=== PATIENT | female | born 1980 | race Caucasian/White ===

== ENCOUNTER → 2016-09-13 | Outpatient (CLI) | payer OTHER ==
[~2016-09-13] MED LIST: ASPECUNK PO; INSPMPHMLG; PRCUNK PO
[2016-09-13 16:35] LABS: ALT/SGPT 23 U/L (12-78); AST/SGOT 14 U/L (15-37); BLOOD UREA NITROGEN 8 mg/dl (7-18); BUN/CREATININE RATIO 10.1 (10-20); CARBON DIOXIDE 28 mmol/L (21-32); CHLORIDE 107 mmol/L (98-107); CREATININE 0.78 mg/dl (0.60-1.20); GLUCOSE 55 mg/dl (70-99); MAGNESIUM 2.2 mg/dl (1.8-2.4); POTASSIUM 3.5 mmol/L (3.5-5.1); SODIUM 141 mmol/L (136-145)
[2016-09-13 16:39] LABS: ALB/GLOB RATIO 0.9 (0.9-2); ALKALINE PHOSPHATASE 89 U/L (45-117); CHOLESTEROL 194 mg/dl (0-200); CHOLESTEROL/HDL RATIO 2.6; HDL CHOLESTEROL 75 mg/dl; LDL CHOLESTEROL CALCULATED 89 mg/dl; TRIGLYCERIDES 152 mg/dl (0-150); VERY LOW DENSITY LIPOPROT CALC 30 mg/dl
[2016-09-14 07:23] LABS: ESTIMATED AVERAGE GLUCOSE 209 mg/dl; HA1C FLAG Normal (Normal)
== END | disposition home or self-care (01) ==
LOC: C.LAB1850 15:21
PROVIDERS: ATTEND Internal Medicine
DX: E10.65 Type 1 diabetes mellitus with hyperglycemia (principal); E55.9 Vitamin D deficiency, unspecified; E83.42 Hypomagnesemia; R53.83 Other fatigue; Z71.89 Other specified counseling

== ENCOUNTER → 2017-02-26 | Outpatient (CLI) | payer OTHER ==
[2017-02-26 17:15] LABS: BLOOD UREA NITROGEN 12 mg/dl (7-18); BUN/CREATININE RATIO 12.2 (10-20); CALCIUM 9.1 mg/dl (8.5-10.1); CARBON DIOXIDE 30 mmol/L (21-32); CHLORIDE 101 mmol/L (98-107); CREATININE 0.96 mg/dl (0.60-1.20); GLUCOSE 332 mg/dl (70-99); POTASSIUM 3.9 mmol/L (3.5-5.1); SODIUM 136 mmol/L (136-145)
[2017-02-26 17:19] LABS: ESTIMATED AVERAGE GLUCOSE 255 mg/dl; HA1C FLAG Normal (Normal)
[2017-02-26 17:25] LABS: BETA-HYDROXYBUTYRATE 1.02 mg/dL (0.2-2.81); THYROID STIMULATING HORMONE 0.836 uIu/ml (0.300-4.500)
== END | disposition home or self-care (01) ==
LOC: C.LAB1850 15:20
PROVIDERS: ATTEND Nurse Practitioner Adult Health
DX: E10.65 Type 1 diabetes mellitus with hyperglycemia (principal); E55.9 Vitamin D deficiency, unspecified

== ENCOUNTER → 2017-12-10 | Outpatient (CLI) | payer OTHER ==
[~2017-12-10] MED LIST changes: +LINA1CAP2 PO; +ONDA4TAB46 PO
--- NOTE | 2017-12-10 13:26 | DIAGNOSTIC IMAGING REPORT ---
ABDOMEN 2VIEW W/PA CHEST RTN HISTORY: 37 years-old Female K59.09 chronic constipation COMPARISON: CT abdomen and pelvis 05/13/2012 TECHNIQUE: PA view of the chest with erect and supine views of the abdomen FINDINGS: Cardiomediastinal and hilar silhouettes are within normal limits. No pneumothorax, pleural effusion, focal airspace consolidation or overt pulmonary edema. Bones of the chest appear grossly intact. No pneumatosis or pneumoperitoneum. Bowel gas pattern is nonobstructive. Renal shadows are partially obscured by bowel gas. The previously noted nonobstructing calculus of the left kidney is not definitively seen. Indeterminate 1.9 cm round radiodensity about the left midabdomen may be external to the patient. There is moderate volume of formed stool noted throughout the right hemicolon and transverse colon with a few scattered air-fluid levels. No fracture. Phleboliths of the pelvis. IMPRESSION: 1. No acute processes of the chest. 2. Nonobstructive bowel gas pattern. 3. Moderate formed colonic stool about the cecum, ascending and transverse colon. The above report was generated using voice recognition software. It may contain grammatical, syntax or spelling errors. Electronically signed by: Andre Vigil M.D. 12/10/2017 1:25 PM Dictated Date/Time: 12/10/2017 1:23 PM
[2017-12-10 14:52] LABS: BASO % 0.5 %; BASO ABS # 0.02 K/uL (0-0.2); EOS % 1.2 %; EOS ABS # 0.05 K/uL (0-0.5); HEMATOCRIT 42.1 % (37-47); HEMOGLOBIN 13.9 g/dL (12.0-16.0); IG# 0.01 K/uL (0.00-0.02); LYMPH % 35.4 %; LYMPH ABS # 1.45 K/uL (1.2-3.4); MEAN CELL VOLUME 89.2 fL (80-100); MEAN CORPUSCULAR HEMOGLOBIN 29.4 pg (25-34); MEAN PLATELET VOLUME 11.2 fL (7.4-10.4); MONO ABS # 0.45 K/uL (0.11-0.59); NEUT % 51.7 %; NEUT ABS # 2.12 K/uL (1.4-6.5); PLATELET COUNT 298 K/uL (130-400); RED CELL DISTRIBUTION WIDTH CV 13.6 % (11.5-14.5); RED CELL DISTRIBUTION WIDTH SD 44.6 fL (36.4-46.3)
[2017-12-10 15:52] LABS: ALBUMIN 3.6 gm/dl (3.4-5.0); ALKALINE PHOSPHATASE 80 U/L (45-117); ALT/SGPT 21 U/L (12-78); AST/SGOT 13 U/L (15-37); BLOOD UREA NITROGEN 7 mg/dl (7-18); CALCIUM 8.6 mg/dl (8.5-10.1); CARBON DIOXIDE 26 mmol/L (21-32); CHOLESTEROL 131 mg/dl (0-200); CREATININE 0.82 mg/dl (0.60-1.20); GLUCOSE 165 mg/dl (70-99); LDL CHOLESTEROL CALCULATED 68 mg/dl; LIPASE 56 U/L (73-393); POTASSIUM 3.3 mmol/L (3.5-5.1); SODIUM 137 mmol/L (136-145); TOTAL PROTEIN 7.8 gm/dl (6.4-8.2)
== END | disposition home or self-care (01) ==
LOC: C.RAD1850 12:19
PROVIDERS: ATTEND Physician Assistant
DX: K59.09 Other constipation (principal); E10.65 Type 1 diabetes mellitus with hyperglycemia; E55.9 Vitamin D deficiency, unspecified; E78.5 Hyperlipidemia, unspecified; Z46.81 Encounter for fitting and adjustment of insulin pump

== ENCOUNTER → 2017-12-19 | Day surgery (SDC) | payer OTHER ==
[2017-12-14 09:54] VITALS: Ht 174 cm; Wt 100.0 kg
[~2017-12-19] VITALS: Ht 174 cm; Wt 100.0 kg
[~2017-12-19] MED LIST changes: -ASPECUNK PO; -PRCUNK PO; +PROPOFOL IV EMULSION 10 MG/ML 20 ML VIAL ONE; +SODIUM CHLORIDE 0.9% 500ML 500 ML IV ONE
--- NOTE | 2017-12-19 11:24 | Endo History and Physical ---
History & Physical Date of Service: Dec 19, 2017. Chief Complaint: Abdominal pain and Elevated C-Reactive Protein Referring Physician: Dr. Henley History of Present Illness 37 yo CF who presents for colonoscopy secondary to abdominal pain and elevated C -Reactive protein. Past Surgical History Hx Cardiac Surgery: No Hx Internal Defibrillator: No Hx Pacemaker: No Hx Abdominal Surgery: No Hx of Implantable Prosthesis: No Hx Post-Op Nausea and Vomiting: No Hx Cancer Surgery: No Hx Thoracic Surgery: No Hx Orthopedic: Yes (R ANKLE SX X3--HAS LARA PLACED) Hx Urinary Tract Surgery: No Family History None Social History Smoking Status: Never Smoker Hx Substance Use: No Hx Alcohol Use: Yes (RARELY) Allergies Coded Allergies: No Known Allergies (Verified , NONE, 12/14/17) Current Medications Reported Home Medications Medications Dose Route/Sig Max Daily Dose Days Date Category Zofran (Ondansetron HCl) 4 Mg Tab 4 Mg PO Q6 PRN 12/14/17 Reported Linzess (Linaclotide) 290 Mcg Cap 1 Cap PO DAILYBB 12/14/17 Reported Insulin Humalog Pump (Insulin Human Lispro) Pump 10/07/08 Reported Vital Signs Weight (Kilograms): 100 Height (Feet): 5 Height (Inches): 8.5 Physical Exam General Appearance: WD/WN, no apparent distress Respiratory/Chest: Auscultation: breath sounds normal Cardiovascular: Heart Auscultation: RRR Abdomen: Bowel Sounds: normal Inspection & Palpation: soft, non-distended, no tenderness, guarding & rebound Assessment and Plan Assessment: 37 yo CF who presents for colonoscopy secondary to abdominal pain and elevated C -Reactive protein. Plan: Proceed with colonoscopy.
[2017-12-19 11:31] VITALS: TEMP 36.9
--- NOTE | 2017-12-19 12:09 | GI REPORT ---
Patient Name: Roberta Avila Procedure Date: 12/19/2017 11:18 AM Date of : 1980 Admit Type: Outpatient Age: 37 Gender: Female Attending MD: Rj Varner DO Procedure: Colonoscopy Providers: Rj Varner DO Referring MD: Agatha Hartman Indications: Generalized abdominal pain, Elevated CRP Medicines: Monitored Anesthesia Care Complications: No immediate complications. Estimated Blood Loss: Estimated blood loss: none. Procedure: Pre-Anesthesia Assessment: - Prior to the procedure, a History and Physical was performed, and patient medications and allergies were reviewed. The patient's tolerance of previous anesthesia was also reviewed. The risks and benefits of the procedure and the sedation options and risks were discussed with the patient. All questions were answered, and informed consent was obtained. Prior Anticoagulants: The patient has taken no previous anticoagulant or antiplatelet agents. ASA Grade Assessment: II - A patient with mild systemic disease. After reviewing the risks and benefits, the patient was deemed in satisfactory condition to undergo the procedure. After I obtained informed consent, the scope was passed under direct vision. Throughout the procedure, the patient's blood pressure, pulse, and oxygen saturations were monitored continuously. The On-site loaner was introduced through the anus and advanced to the terminal ileum. The colonoscopy was performed without difficulty. The patient tolerated the procedure well. The quality of the bowel preparation was good. The terminal ileum, ileocecal valve, appendiceal orifice, and rectum were photographed. Findings: The perianal and digital rectal examinations were normal. Non-bleeding internal hemorrhoids were found during retroflexion. The hemorrhoids were small. Impression: - Non-bleeding internal hemorrhoids. - No specimens collected. Recommendation: - Resume previous diet. - Continue present medications. - Repeat colonoscopy in 10 years for surveillance. - Return to primary care physician as previously scheduled. Rj Varner DO 12/19/2017 12:08:32 PM This report has been signed electronically. Note Initiated On: 12/19/2017 11:18 AM Number of Addenda: 0 I attest to the content of the Intraoperative Record and orders documented therein, exceptions below {[id number]}
[2017-12-19 12:32] VITALS: BP 125/88; PULSE 93; O2SAT 99
--- NOTE | 2017-12-19 12:46 | Anesthesiology Progress Note ---
Anesthesia Post Op Note Date & Time Dec 19, 2017 at 12:46 Vital Signs Pain Intensity: 0 Vital Signs Past 12 Hours Date Time Temp Pulse Resp B/P (MAP) Pulse Ox O2 Delivery O2 Flow Rate FiO2 12/19/17 12:32 93 18 125/88 (100) 99 Room Air 12/19/17 12:24 95 18 121/80 (94) 99 Room Air 12/19/17 12:17 98 16 106/84 (91) 98 Room Air 12/19/17 12:11 93 16 110/66 (81) 87 Room Air 12/19/17 11:31 36.9 102 16 144/83 (103) 98 Room Air Notes Mental Status: alert / awake / arousable, participated in evaluation Pt Amnestic to Procedure: Yes Nausea / Vomiting: adequately controlled Pain: adequately controlled Airway Patency, RR, SpO2: stable & adequate BP & HR: stable & adequate Hydration State: stable & adequate Anesthetic Complications: no major complications apparent
--- NOTE | 2017-12-19 12:50 | Discharge Instructions ---
Endoscopy Patient Instructions Date / Procedure(s) Performed Dec 19, 2017. Colonoscopy Allergy Information Coded Allergies: No Known Allergies (Verified , NONE, 12/14/17) Discharge Date / Findings Dec 19, 2017. Internal hemorrhoids Medication Instructions OK to resume all medications today as prescribed Reported Home Medications Medications Dose Route/Sig Max Daily Dose Days Date Category Zofran (Ondansetron HCl) 4 Mg Tab 4 Mg PO Q6 PRN 12/14/17 Reported Linzess (Linaclotide) 290 Mcg Cap 1 Cap PO DAILYBB 12/14/17 Reported Insulin Humalog Pump (Insulin Human Lispro) Pump 10/07/08 Reported Provider Instructions Activity Restrictions - No exercising or heavy lifting for 24 hours. - Do not drink alcohol the day of the procedure. - Do not drive a car or operate machinery until the day after the procedure. - Do not make any important decisions or sign important papers in 24 hours after the procedure. Following Day: - Return to full activity which may include returning to work/school. Diet Start your diet with liquids and light foods (jello, soup, juice, toast). Then eat your usual diet if not nauseated. Treatment For Common After Affects For mild abdominal pain, bloating, or excessive gas: - Rest - Eat lightly - Lie on right side Follow-Up Information Follow-up with Dr. Irvin Henley, Dr. Chelsea Cloudor as scheduled Anesthesia Information What You Should Know You have had a procedure that required some medicine to reduce anxiety and discomfort. This treatment is called moderate sedation. After receiving the treatment, you may be sleepy, but you will be able to breathe on your own. The effects of the treatment may last for several hours. Follow these instructions along with Activity/Diet recommendations noted above: * Do NOT do anything where dizziness or clumsiness would be dangerous. * Rest quietly at home today, then you can be up and about tomorrow. * Have a responsible person stay with you the rest of today. * You may have had an I.V. today. If so, you may take the dressing off later today. Recommendations Call your doctor if: * Trouble breathing * Continuous vomiting for more than 24 hours * Temperature above 101 degrees * Severe abdominal pain or bloating * Pain not relieved by pain medicine ordered * There is increased drainage or redness from any incision * A large amount of rectal bleeding greater than 2-3 tablespoons. (If you had a polyp/s removed or have hemorrhoids, a small amount of blood - from the rectum is to be expected.) * You have any unanswered questions or concerns. IN THE EVENT OF A SERIOUS EMERGENCY, GO TO THE NEAREST EMERGENCY ROOM Your discharge instructions were prepared by provider Rj Varner. Patient Instructions Signature Page Roberta Avila Patient (or Guardian) Signature/Date: I have read and understand the instructions given to me by my caregivers. Caregiver/RN/Doctor Signature/Date: The above-named patient and/or guardian has received patient instructions on this date. + Original Patient Signature Page (only) stays with chart. Please make copy for patient.
== END | disposition home or self-care (01) ==
LOC: C.GI 11:04
PROVIDERS: ATTEND Internal Medicine
DX: R10.84 Generalized abdominal pain (principal); R79.82 Elevated C-reactive protein (CRP); K64.8 Other hemorrhoids; E11.9 Type 2 diabetes mellitus without complications; Z79.4 Long term (current) use of insulin

== ENCOUNTER 2023-07-11 09:23 | Inpatient (IN) ==
--- NOTE | 2023-07-11 10:11 | Emergency Department Note ---
Impression & Plan Back pain ADMIT ED Provider Note HPI: History obtained from patient. The patient is a 43-year-old female who presents emergency department with a chief complaint of left lower back pain that radiates down her left leg. Patient states that her symptoms are worsened over the past 3 days. Patient denies any loss of bowel or bladder, denies any recent fevers, denies any saddle anesthesia. Patient states she does get pain with flexion at the left hip. On arrival here to the ED the patient is hemodynamically stable, she is in no acute distress on my initial assessment. ROS: - Per HPI Differential Diagnosis: Herniated lumbar disc, paracentral lumbar disc extrusion, degenerative changes of the lumbar spine with neuroforaminal stenosis, epidural abscess, epidural hematoma, amongst other potential pathologies. *Outpatient medications and allergy history reviewed. PE: General: Alert HEENT: Normocephalic, trachea midline Eyes: Extraocular eye movement is intact, no scleral erythema Pulmonary: Clear to auscultation bilaterally, no wheezing Cardio: Regular rate and rhythm GI: Abdomen is soft to palpation : No suprapubic tenderness MSK: No evidence of trauma or malformation of the extremities, no edema Skin: No evidence of rash Neuro: Alert, no focal deficits, there is 5 out of 5 strength noted with dorsiflexion and plantarflexion in the bilateral lower extremities Psychiatric: Cooperative INDEPENDENT INTERPRETATIONS: court monitor: (As interpreted by myself): - An order was placed for continuous cardiac monitoring - Patient was noted to be in sinus rhythm with a rate of 85 Interventions provided in ED: -IV morphine, IV Zofran, IV Solu-Medrol, IV Toradol Medical Decision Making: IV was established and lab work obtained, patient was placed on pvc monitor. Lab work shows no leukocytosis, hemoglobin is normal, platelet count is normal, CMP does not show any critical findings. Urinalysis does not show any evidence of infection, there is 3+ blood. CT imaging of the lumbar spine was obtained, this shows a large paracentral disc extrusion at the level of L5/S1. This does result in severe central canal stenosis. There is also a left-sided paracentral disc extrusion at L4-L5 that is likely playing a role in the patient's symptoms. On my reassessment the patient states following the above interventions that she is still having some pain with ambulation, she was therefore given an additional dose of morphine and a dose of IV Toradol. In discussing disposition options with the patient she states she would prefer admission for orthopedic/spinal surgery consultation given the severity of her pain and pain with ambulation. Patient does not have any red flag findings for cauda equina syndrome on my exam. I discussed the patient's imaging findings and symptoms with on-call orthopedic/spinal surgery, Dr. Patel, he is in agreement for consultation. He did recommend MRI imaging of the lumbar spine be obtained and therefore this was ordered prior to the patient's admission. Case was then discussed with the on- call hospitalist service, Sean Wang PA-C, and the patient was placed for admission in stable condition for further care and orthopedic consultation. Consultants/Discussions held with other healthcare providers: -Orthopedic/spinal surgery, Dr. Patel -Hospitalist service, Sean Wang PA-C Disposition discussion held by myself with: -Patient Diagnosis: 1. Spinal stenosis secondary to lumbar disc extrusion at L5/S1, acute 2. Lower back pain, acute on chronic, with left-sided radiculopathy 3. Ambulatory dysfunction, acute Disposition: Admission David Cortez DO Emergency Medicine Past Med/Surg History Medical History Acute bacterial sinusitis Chest pain Cough productive of purulent sputum Flank pain Urinary symptom or sign Surgical History History of wisdom tooth extraction S/P foot surgery Family History Grandmother (Maternal) Colorectal cancer Father Parkinson disease Renal failure Grandfather (Maternal) Eosinophilic leukemia Family/Other Ovarian cancer Denies family history of Prostate cancer Crohn's disease Myocardial infarction Breast cancer Ulcerative colitis Social History Smoking Status: Never smoker Hx Alcohol Use: Yes Hx Substance Use: No Preferred Language: Greek Communication Ability: Effective Visual Impairment: No Limitations Hearing Ability: Normal marital status: Single Current Living Situation: Alone current occupational status: employed Feels Safe at Home: Yes Dental Care, Regularly: Yes Physical Activity Frequency: 1-2 Times per Week Seatbelt Use: always Sunscreen Use: Yes Allergies Allergies Allergy/AdvReac Type Severity Reaction Status Date / Time No Known Drug Allergies Allergy Verified 07/11/23 11:36 Home Meds Home Medications Medication Instructions Recorded Confirmed ferrous sulfate 325 mg (65 mg 325 mg PO Q OTHER DAY 02/11/20 07/11/23 iron) tablet mecobalamin (vitamin B12) 1,000 2,000 mcg PO DAILY 01/19/22 07/11/23 mcg chewable tablet lancets 33 gauge (OneTouch Delica #100 ea 08/17/22 10/27/22 Lancets) acetaminophen 500 mg tablet 500 mg PO Q6H PRN Pain 07/11/23 07/11/23 ibuprofen 200 mg tablet (Advil) 200 mg PO Q6H PRN Pain 07/11/23 07/11/23 insulin aspart U-100 100 unit/mL See Rx Instructions .Route .COMPLEX 07/11/23 07/11/23 subcutaneous solution (Novolog U-100 Insulin aspart) insulin lispro 100 unit/mL 40 unit subcut BID 07/11/23 07/11/23 subcutaneous solution Previous Rx's Medication Instructions Recorded flash glucose scanning reader #1 ea 01/06/22 (FreeStyle Barbara 2 [place]) blood sugar diagnostic (Circle 1 NetworkTouch #200 ea 04/03/22 Ultra Test strips) insulin pump cart,cont inf,BT #15 ea 07/18/22 (Omnipod Dash Pods (Gen 4) subcutaneous cartridge) atorvastatin 10 mg tablet 10 mg PO QPM #90 tabs 08/30/22 pen needle, diabetic 32 gauge x #400 ea 10/04/22 5/32" (BD Liliane 2nd Gen Pen Needle) insulin syringe-needle U-100 0.5 #200 ea 01/25/23 mL 31 gauge x 5/16" (BD Insulin Syringe Ultra-Fine) cholecalciferol (vitamin D3) 1,250 See Rx Instructions PO WEEKLY #13 03/09/23 mcg (50,000 unit) capsule caps flash glucose sensor (Tembo StudioStyle #6 ea 05/08/23 Barbara 2 Sensor kit) Results & Data (ED) Vital Signs Vital Signs - 24 hr 07/11/23 09:45 Temperature 36.7 C Temperature Source Temporal Artery Scan Pulse Rate 89 Respiratory Rate 18 Respiratory Effort / Characteristics Non-Labored Spontaneous Respiratory Depth Normal Blood Pressure 153/83 H Blood Pressure Mean 106 Blood Pressure Position Sitting Pulse Oximetry 98 Oxygen Delivery Method Room Air Sepsis Recent Fever Within 48 Hours No Sepsis New/Unexplained Change in Mental Status No Sepsis Action Taken by Nursing No Action Required Laboratory Data 07/11/23 10:20 07/11/23 10:20 Lab Results 07/11/23 07/11/23 Range/Units 10:20 10:23 WBC 7.16 (4.8-10.8) K/ul RBC 4.93 (4.20-5.40) M/uL Hgb 14.4 (12.0-16.0) g/dl Hct 44.1 (37.0-47.0) % MCV 89.5 (80.0-100.0) fL MCH 29.2 (25.0-34.0) pg MCHC 32.7 (32.0-36.0) g/dL RDW Std Deviation 47.2 H (36.4-46.3) fL RDW Coeff of Ar 14.4 (11.5-14.5) % Plt Count 373 (130-400) K/uL MPV 9.9 (9.4-12.4) fL Immature Gran % (Auto) 0.3 % Neut % (Auto) 66.8 % Lymph % (Auto) 26.1 % [place] % (Auto) 5.2 % Eos % (Auto) 1.0 % Baso % (Auto) 0.6 % Neut # (Auto) 4.79 (1.40-6.50) K/uL Lymph # (Auto) 1.87 (1.20-3.40) K/uL [place] # (Auto) 0.37 (0.11-0.59) K/uL Eos # (Auto) 0.07 (0.00-0.50) K/uL Baso # (Auto) 0.04 (0.00-0.20) K/uL Immature Gran # (Auto) 0.02 (0.01-0.20) K/uL Sodium 137 (136-145) mmol/L Potassium 3.8 (3.5-5.1) mmol/L Chloride 103 (98-107) mmol/L Carbon Dioxide 26 (21-32) mmol/L Anion Gap 8 (3-11) BUN 9 (6-23) mg/dl Creatinine 0.81 (0.6-1.2) mg/dl Est Cr Clr Drug Dosing Not Reportable Est GFR ( Amer) 104.6 ml/min Est GFR (Non-Af Amer) 90.2 ml/min BUN/Creatinine Ratio 11.1 (10-20) Glucose 170 H (70-99(Fasting)) mg/dl Calcium 9.4 (8.6-10.3) mg/dl Total Bilirubin 0.6 (0.2-1.0) mg/dl AST 19 (13-39) U/L ALT 16 (7-52) U/L Alkaline Phosphatase 75 (34-104) U/L Total Protein 8.3 (6.0-8.3) gm/dl Albumin 4.5 (3.4-5.0) gm/dl Globulin 3.8 (2.5-4.0) gm/dl Albumin/Globulin Ratio 1.2 (0.9-2) Lipase 36 (11-82) U/L Urine Color Yellow Urine Appearance Clear (Clear) Urine pH 6.0 (4.5-7.5) Ur Specific Alpha 1.011 (1.000-1.030) Urine Protein Negative (Negative) Urine Glucose (UA) Negative (Negative) Urine Ketones Negative (Negative) Urine Blood 3+ H (Negative) Urine Nitrite Negative (Negative) Urine Bilirubin Negative (Negative) Urine Urobilinogen Negative (Negative) Ur Leukocyte Esterase Negative (Negative) Urine WBC (Auto) 1-5 (0-5) /hpf Urine RBC (Auto) 0-4 (0-4) /hpf U Hyaline Cast (Auto) 0 (0-5) /lpf U Epithel Cells (Auto) 5-10 H (0-5) /lpf Urine Bacteria (Auto) Negative (Negative) Administered Medications Discontinued Medications Acetaminophen (Acetaminophen 325 Mg Tab) 650 mg PO Q6H WINSTON Stop: 08/10/23 13:59 Last Admin: 07/11/23 13:55 Dose: Not Given Documented By: SETH Sodium Chloride (Nss) 500 mls @ 999 mls/hr IV .Q31M STA Stop: 07/11/23 10:37 Last Infusion: 07/11/23 10:46 Dose: Infused Documented By: Admin: 07/11/23 10:17 Dose: 999 mls/hr Documented By: VIDA Pantoprazole Sodium 40 mg/ (Syringe) 10 mls @ 5 mls/min IV NOW ONE Stop: 07/11/23 13:03 Last Admin: 07/11/23 13:50 Dose: 5 mls/min Documented By: SETH Ketorolac Tromethamine (Ketorolac Tromethamine 15 Mg/Ml Vial) 15 mg IV NOW ONE Stop: 07/11/23 11:48 Last Admin: 07/11/23 11:56 Dose: 15 mg Documented By: Lidocaine (Lidocaine 5% 1 Patch) 1 patch TD NOW STA Stop: 07/11/23 13:05 Last Admin: 07/11/23 13:51 Dose: 1 patch Documented By: SETH Methylprednisolone (Methylprednisolone 125 Mg/2 Ml Vial) 125 mg IV NOW STA Stop: 07/11/23 10:08 Last Admin: 07/11/23 10:17 Dose: 125 mg Documented By: VIDA Miscellaneous (Patient's Height &/Or Weight Needed) 1 each N/A Q2H [place] Stop: 08/10/23 13:59 Last Admin: 07/11/23 14:11 Dose: 1 each Documented By: SETH Morphine Sulfate (Morphine Sulfate 4 Mg/Ml 1 Ml Carp\\Vial) 4 mg IV NOW STA Stop: 07/11/23 10:08 Last Admin: 07/11/23 10:18 Dose: 4 mg Documented By: VIDA Morphine Sulfate (Morphine Sulfate 4 Mg/Ml 1 Ml Carp\\Vial) 4 mg IV NOW STA Stop: 07/11/23 11:48 Last Admin: 07/11/23 11:56 Dose: 4 mg Documented By: Morphine Sulfate (Morphine Sulfate 4 Mg/Ml 1 Ml Carp\\Vial) 4 mg IV NOW STA Stop: 07/11/23 13:15 Last Admin: 07/11/23 13:25 Dose: 4 mg Documented By: SETH Ondansetron HCl (Ondansetron Inj 2 Mg/Ml 2 Ml Vial) 4 mg IV NOW STA Stop: 07/11/23 10:08 Last Admin: 07/11/23 10:18 Dose: 4 mg Documented By: VIDA Imaging Data Radiologist's Impression: Lumbar Spine CT 07/11/23 10:[address] DOSE: 1145.96 mGy.cm HISTORY: L lower back pain w/sciatica TECHNIQUE: Multiaxial CT images of the lumbar spine were performed and reformatted in the sagittal and coronal plane without the use of contrast. A dose lowering technique was utilized adhering to the principles of ALARA. COMPARISON: None. FINDINGS: No fracture or subluxation within the lumbar spine. The visualized sacrum is intact. Moderate disc space narrowing at L5-S1. The remaining disc spaces are preserved. Paravertebral soft tissues are unremarkable. There is a punctate stone within the left kidney. No right renal calculi. No hydronephrosis. There is a left circumaortic renal vein. There is a 5 mm central/left paracentral focal disc protrusion at L4-L5 resulting in movd-qu-euularmv central canal narrowing and moderate narrowing of the left lateral recess. No significant neural foraminal narrowing at this level by CT technique. There is a large partially calcified left paracentral disc extrusion at L5-S1. This measures 12 x 12 mm and results in severe predominantly left- sided central canal narrowing with severe narrowing of the left lateral recess. This likely compresses the transiting left S1 nerve root. IMPRESSION: 1. No acute fractures within the lumbar spine. 2. There is a large partially calcified left paracentral disc extrusion at L5-S1 measuring 12 x 12 mm. This results in severe central canal narrowing 3. A 5 mm central/left paracentral focal disc protrusion at L4-5 resulting in mild to moderate central canal narrowing and moderate narrowing of the left lateral recess preop ACT 112: Negative or not required by law. Electronically signed by: Andre Lunsford M.D. 07/11/2023 11:09 AM Lumbar Spine MRI 07/11/23 12:09 MR lumbar spine wo con CLINICAL HISTORY: LL back pain, ambulatory issues TECHNIQUE: Multiplanar sequences through the lumbar spine were obtained, without intravenous contrast. Comparison: Comparison is made to CT lumbar spine 07/11/2023 FINDINGS: The alignment is anatomical. L1-L2: No significant abnormality. L2-L3: No significant abnormality. L3-L4: No significant abnormality. L4-L5: Broad-based posterior disc bulge is seen without significant canal or neuroforaminal stenosis. L5-S1: Posterior disc extrusion is seen with severe canal and left neuroforaminal stenosis. The spinal ligaments are intact, without evidence of disruption or abnormal signal intensity. The spinal cord is normal in signal intensity and there is no evidence of cord contusion. There is no evidence of an extradural, intradural, extramedullary or intramedullary lesion. Visualized soft tissues are normal. IMPRESSION: Posterior disc extrusion at L5-S1 with severe canal and left neuroforaminal stenosis. ACT 112: Negative or not required by law. Electronically signed by: Jesse Marinelli M.D. 07/11/2023 2:00 PM Discharge Plan Visit Data Chief Complaint: Back Injury/Pain Stated Complaint: LOWER BACK PAIN ED Provider: David Cortez Discharge Problem: Back pain Patient Disposition: Admitted As Inpatient Discharge Instructions Interventions: ED Discharge Assessment Last Done: 07/11/23 14:35 Discharge Problem: Back pain Qualifiers: Back pain location: low back pain Chronicity: acute Back pain laterality: left Sciatica presence: with sciatica Sciatica laterality: sciatica of left side Q ualified Code(s): M54.42 - Lumbago with sciatica, left side
[2023-07-11] MEDS: SODIUM CHLORIDE 0.9% 500 ML IV STA (10:17)
[2023-07-11] MEDS: methylPREDNISolone 125 MG/2 ML VIAL IV STA (10:17)
[2023-07-11] MEDS: ONDANSETRON INJ 2 MG/ML 2 ML VIAL IV STA (10:18)
[2023-07-11] MEDS: MoRPHine SULFATE 4 MG/ML 1 ML CARP\\VIAL IV STA ×3 (10:18→13:25)
[2023-07-11 10:37] LABS: Appearance Urine Clear (Clear); Bacteria Urine Automated Negative (Negative); Bilirubin Urine Negative (Negative); Blood Urine 3+ (Negative); Cast Urine Automated 0 /lpf (0-5); Color Urine Yellow; Glucose Urine UA Negative (Negative); Ketones Urine Negative (Negative); Leukocyte Esterase Urine Negative (Negative); Nitrite Urine Negative (Negative); Protein Urine Negative (Negative); Specific Gravity Urine 1.011 (1.000-1.030); Urobilinogen Urine Negative (Negative)
[2023-07-11 10:39] LABS: Basophils # (auto) 0.04 K/uL (0.00-0.20); Basophils % (auto) 0.6 %; Eosinophils # (auto) 0.07 K/uL (0.00-0.50); Hematocrit (blood only) 44.1 % (37.0-47.0); Hemoglobin 14.4 g/dl (12.0-16.0); Immature Granulocytes # (auto) 0.02 K/uL (0.01-0.20); Immature Granulocytes % (auto) 0.3 %; Lymphocytes # (auto) 1.87 K/uL (1.20-3.40); Lymphocytes % (auto) 26.1 %; Mean Corpuscular Hemoglobin 29.2 pg (25.0-34.0); Mean Corpuscular Hgb Conc 32.7 g/dL (32.0-36.0); Mean Corpuscular Volume 89.5 fL (80.0-100.0); Mean Platelet Volume 9.9 fL (9.4-12.4); Monocytes # (auto) 0.37 K/uL (0.11-0.59); Monocytes % (auto) 5.2 %; Neutrophils # (auto) 4.79 K/uL (1.40-6.50); Neutrophils % (auto) 66.8 %; Platelet Count 373 K/uL (130-400); RDW Coefficient of Variation 14.4 % (11.5-14.5); RDW Standard Deviation 47.2 fL (36.4-46.3); Red Blood Count 4.93 M/uL (4.20-5.40); White Blood Count 7.16 K/ul (4.8-10.8)
[2023-07-11 11:00] LABS: Alanine Aminotransferase 16 U/L (7-52); Albumin Globulin Ratio 1.2 (0.9-2); Albumin Level 4.5 gm/dl (3.4-5.0); Alkaline Phosphatase 75 U/L (34-104); Anion Gap 8 (3-11); Aspartate Aminotransferase 19 U/L (13-39); BUN Creatinine Ratio 11.1 (10-20); Bilirubin,Total 0.6 mg/dl (0.2-1.0); Blood Urea Nitrogen 9 mg/dl (6-23); Calcium 9.4 mg/dl (8.6-10.3); Carbon Dioxide 26 mmol/L (21-32); Chloride 103 mmol/L (98-107); Est GFR (African American) 104.6 ml/min; Est GFR (Non-African American) 90.2 ml/min; Globulin 3.8 gm/dl (2.5-4.0); Glucose 170 mg/dl (70-99(Fasting)); Lipase 36 U/L (11-82); Potassium 3.8 mmol/L (3.5-5.1); Sodium 137 mmol/L (136-145); Total Protein 8.3 gm/dl (6.0-8.3)
[2023-07-11 11:07] LABS: RBC Urine Automated 0-4 /hpf (0-4)
--- NOTE | 2023-07-11 11:12 | CT Scan Report ---
LUMBAR SPINE CT CT DOSE: 1145.96 mGy.cm HISTORY: L lower back pain w/sciatica TECHNIQUE: Multiaxial CT images of the lumbar spine were performed and reformatted in the sagittal an d coronal plane without the use of contrast. A dose lowering technique was utilized adhering to the principles of ALARA. COMPARISON: None. FINDINGS: No fracture or subluxation within the lumbar spine. The visualized sacrum is intact. Modera te disc space narrowing at L5-S1. The remaining disc spaces are preserved. Paravertebral soft tissues are unremarkable. There is a punctate stone within the left kidney. No right renal calculi. No hydro nephrosis. There is a left circumaortic renal vein. There is a 5 mm central/left paracentral focal di sc protrusion at L4-L5 resulting in [id number] central canal narrowing and moderate narrowing o f the left lateral recess. No significant neural foraminal narrowing at this level by CT technique. T here is a large partially calcified left paracentral disc extrusion at L5-S1. This measures 12 x 12 m m and results in severe predominantly left-sided central canal narrowing with severe narrowing of the left lateral recess. This likely compresses the transiting left S1 nerve root. IMPRESSION: 1. No acute fractures within the lumbar spine. 2. There is a large partially calcified left paracentral disc extrusion at L5-S1 measuring 12 x 12 mm . This results in severe central canal narrowing 3. A 5 mm central/left paracentral focal disc protrusion at L4-5 resulting in mild to moderate centra l canal narrowing and moderate narrowing of the left lateral recess preop ACT 112: Negative or not required by law. Electronically signed by: Andre Lunsford M.D. 07/11/2023 11:09 AM
[2023-07-11] MEDS: KETOROLAC TROMETHAMINE 15 MG/ML VIAL IV ONE (11:56)
--- NOTE | 2023-07-11 12:54 | History & Physical Report ---
Date of Service July 11, 2023 Assessment & Plan (1) Radicular low back pain: Plan: -Admit to med/surge -Currently stable and non-toxic appearing -Presented to the ED this am due to acute exacerbation of her chronic back now with pain radiating down her left LE -No red flag symptoms such as saddle anesthesia, loss of bowel/bladder function, fevers, or recent trauma -Labs colon WNL -CT of the lumbar spine was read as "large partially calcified left paracentral disc extrusion at L5-S1 measuring 12 x 12 mm. This results in severe central canal narrowing 3. A 5 mm central/left paracentral focal disc protrusion at L4-5 resulting in mild to moderate central canal narrowing and moderate narrowing of the left lateral recess preop". -Dr. Patel has been consulted and will evaluate the patient tomorrow to see if she requires surgical intervention, he recommended obtaining an MRI of the lumbar spine and pain control for now -MRI of the lumbar spine was obtain but yet to be read, will follow up -S/P 125 mg IV methylprednisolone in the ED, will continue with 4 mg IV dexamethasone q6h for now -IV morphine q4h prn pain 5+, lidocaine patch, and heat -Will obtain tylenol level prior to ordering scheduled tylenol -Would avoid NSAIDs for now as she has been taking large quantities over the past 2 weeks for pain -Will start daily IV pantoprazole for stress ulcer prophylaxis -Will obtain CXR and ECG for preoperative clearance if needed -BL LINH's for DVT PPX -DMI diet -AM CBC, BMP, mag, PT/INR (2) Controlled type 1 diabetes mellitus, with long-term current use of insulin: Plan: -Patient normally uses basal/bolus insulin -Normally takes 40 units lantus BID but states she has been dropping low in the am -Spoke to her regarding the likelihood of hyperglycemia while on IV steroids -Monitor BSG ACHS, goal will be 110-160 while on steroids -Start lantus 20 units BID for now -CF of 40, CR of 8 -DMI until midnight then NPO except meds -Pharmacy glycemic consult placed (3) Dyslipidemia: Plan: -Continue statin Plan The patient was discussed with Dr. Schmidt at the time of the admission History of Present Illness Chief Complaint: radicular back pain Primary Care Provider: Jonnathan Pennington,MD Roberta is a 43 year old female with a PMH significant for Type 1 DM and chroni c lumbar back pain who presented to the [facility] ED on 07/11/23 with complaints of acute exacerbation of her low back pain with radiation down her left LE. She remained stable in the ED. Labs were significant for a glucose of [address] of the lumbar spine was read as "1. No acute fractures within the lumbar spine. 2. There is a large partially calcified left paracentral disc extrusion at L5-S1 measuring 12 x 12 mm. This results in severe central canal narrowing 3. A 5 mm central/left paracentral focal disc protrusion at L4-5 resulting in mild to moderate central canal narrowing and moderate narrowing of the left lateral recess preop". The ED staff consulted and spoke to Dr. Patel who recommended medicine admission, MRI of the lumbar spine, and pain management. He will evaluate the patient tomorrow to determine need for surgery. Prior to admission the patient was given 15 mg IV toradol, 125 mg IV methylprednisolone, 2 doses of 4 mg IV morphine, 4 mg IV zofran, and 500 mL NSS. At the time of the exam the patient was lying in bed in no acute distress. She was unable to tolerate the MRI as she was in too much pain. She states that she went on retreat 2 weeks ago and slept on an uncomfortable mattress. She had mild lower back pain with some radiation down the left lower extremity on the lateral aspect down to the left knee. Her pain was manageable over the past week and a half but she was taking 1000 mg of tylenol q6h and 800 mg Ibuprofen q6h around the clock. Approximately 3 days ago her pain became significantly worse in the same distribution of the low lumbar back with radiation into the right buttocks and down the left lateral leg to the left knee. She denies recent trauma before or after, saddle anesthesia, loss of bowel or bladder function and LLE weakness. She has been using a walker to ambulate as she has been getting relief leaning forward when standing. She has intermittent numbness in the left foot in certain positions but currently, while lying flat she is without paresthesias. When asked, she uses basal/bolus insulin and has been taking 35 units lantus BID with a correction factor. Please refer to Dr. Schmidt's attestation for any changes to the treatment plan Allergies Allergy/AdvReac Type Severity Reaction Status Date / Time No Known Drug Allergies Allergy Verified 07/11/23 11:36 Home Medications Medication Instructions Recorded Confirmed Type ferrous sulfate 325 mg (65 mg 325 mg PO Q OTHER DAY 02/11/20 07/11/23 History iron) tablet flash glucose scanning reader #1 ea 01/06/22 10/27/22 Rx (FreeStyle Barbara 2 [place]) mecobalamin (vitamin B12) 1,000 2,000 mcg PO DAILY 01/19/22 07/11/23 History mcg chewable tablet blood sugar diagnostic (OneTouch #200 ea 04/03/22 10/27/22 Rx Ultra Test strips) insulin pump cart,cont inf,BT #15 ea 07/18/22 10/27/22 Rx (Omnipod Dash Pods (Gen 4) subcutaneous cartridge) lancets 33 gauge (OneTouch Delica #100 ea 08/17/22 10/27/22 History Lancets) atorvastatin 10 mg tablet 10 mg PO QPM #90 tabs 08/30/22 07/11/23 Rx pen needle, diabetic 32 gauge x #400 ea 10/04/22 03/08/23 Rx 5/32" (BD Liliane 2nd Gen Pen Needle) insulin syringe-needle U-100 0.5 #200 ea 01/25/23 Rx mL 31 gauge x 5/16" (BD Insulin Syringe Ultra-Fine) cholecalciferol (vitamin D3) 1,250 See Rx Instructions PO WEEKLY #13 03/09/23 07/11/23 Rx mcg (50,000 unit) capsule caps flash glucose sensor (FreeStyle #6 ea 05/08/23 Rx Barbara 2 Sensor kit) acetaminophen 500 mg tablet 500 mg PO Q6H PRN Pain 07/11/23 07/11/23 History ibuprofen 200 mg tablet (Advil) 200 mg PO Q6H PRN Pain 07/11/23 07/11/23 History insulin aspart U-100 100 unit/mL See Rx Instructions .Route .COMPLEX 07/11/23 07/11/23 History subcutaneous solution (Novolog U-100 Insulin aspart) insulin lispro 100 unit/mL 40 unit subcut BID 07/11/23 07/11/23 History subcutaneous solution Past Med/Surg History Medical History Acute bacterial sinusitis Chest pain Cough productive of purulent sputum Flank pain Urinary symptom or sign Surgical History History of wisdom tooth extraction S/P foot surgery Family History Grandmother (Maternal) Colorectal cancer Father Parkinson disease Renal failure Grandfather (Maternal) Eosinophilic leukemia Family/Other Ovarian cancer Denies family history of Prostate cancer Crohn's disease Myocardial infarction Breast cancer Ulcerative colitis Social History Smoking Status: Never smoker Hx Alcohol Use: No Hx Substance Use: No Preferred Language: Hebrew Communication Ability: Effective Visual Impairment: No Limitations Hearing Ability: Normal 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 Beliefs That Will Affect Care: None marital status: Single Current Living Situation: Family current occupational status: employed Other Information That Helps Us Care for You: No Feels Safe at Home: Yes Dental Care, Regularly: Yes Physical Activity Frequency: 1-2 Times per Week Seatbelt Use: always Sunscreen Use: Yes Assistive Devices: None Physical Exam Physical Exam: Physical Exam: General: In mild distress due to pain, stated age, well-nourished, non-toxic appearing HEENT: Normocephalic, atraumatic, no scleral icterus, pupils around round, symmetrical, and reactive to light, moist mucus membranes, trachea midline, no thyromegaly Chest/Pulm: No respiratory distress, symmetrical chest expansion, clear breath sounds throughout Cardiac: RRR, no murmurs noted Abdomen: Negative for ascites and bruising, normoactive bowel sounds, soft, non-tender to palpation throughout Musculoskeletal: No acute trauma on inspection and palpation of the cervical, thoracic, and lumbar spine, patient with tenderness to palpation over the lower half of the lumbar spine and left buttocks, patient with full and symmetrical strength in the BL upper and lower extremities Extremities: Radial, dorsalis pedis, and posterior tibial pulses are intact and symmetrical, no edema noted in the BL LE's Skin: Warm, dry, no rashes , lesions, or scars noted Neuro: Alert and oriented to person, place, month, year, and president, no focal defects, symmetrical strength and distal reflexes in the Bl Lower extremities, no tremors noted Psych: mild distress, but polite and cooperative during the exam Results & Data Results & Data Vital Signs (Past 12 Hours) Vital Signs Temp Pulse Resp BP Pulse Ox O2 Del Method 07/11/23 09:45 36.7 C 89 18 153/83 H 98 Room Air Laboratory Results Abnormal lab results 07/11/23 07/11/23 Range/Units 10:20 10:23 RDW Std Deviation 47.2 H (36.4-46.3) fL Glucose 170 H (70-99(Fasting)) mg/dl Urine Blood 3+ H (Negative) U Epithel Cells (Auto) 5-10 H (0-5) /lpf Diagnostic Findings Lumbar Spine CT 07/11/23 10:[address] DOSE: 1145.96 mGy.cm HISTORY: L lower back pain w/sciatica TECHNIQUE: Multiaxial CT images of the lumbar spine were performed and reformatted in the sagittal and coronal plane without the use of contrast. A dose lowering technique was utilized adhering to the principles of ALARA. COMPARISON: None. FINDINGS: No fracture or subluxation within the lumbar spine. The visualized sacrum is intact. Moderate disc space narrowing at L5-S1. The remaining disc spaces are preserved. Paravertebral soft tissues are unremarkable. There is a punctate stone within the left kidney. No right renal calculi. No hydronephrosis. There is a left circumaortic renal vein. There is a 5 mm central /left paracentral focal disc protrusion at L4-L5 resulting in [id number] central canal narrowing and moderate narrowing of the left lateral recess. No significant neural foraminal narrowing at this level by CT technique. There is a large partially calcified left paracentral disc extrusion at L5-S1. This measures 12 x 12 mm and results in severe predominantly left-sided central canal narrowing with severe narrowing of the left lateral recess. This likely compresses the transiting left S1 nerve root. IMPRESSION: 1. No acute fractures within the lumbar spine. 2. There is a large partially calcified left paracentral disc extrusion at L5-S1 measuring 12 x 12 mm. This results in severe central canal narrowing 3. A 5 mm central/left paracentral focal disc protrusion at L4-5 resulting in mild to moderate central canal narrowing and moderate narrowing of the left lateral recess preop ACT 112: Negative or not required by law. Electronically signed by: Andre Lunsford M.D. 07/11/2023 11:09 AM ECG Additional Comments: will obtain at the time of the admission Code Status & VTE Plan Code Status Full code VTE Prophylaxis Plan VTE Prophylaxis will be ordered: Yes Supervising Physician Co-Signing Physician Notes I personally saw and examined the patient. I verified all anderson points and agree with Sean Wang PA-C with the following exceptions and/or additions: 43 year old female presents to the ER with acute exacerbation of her lower back pain radiating down her left leg. O/E HS RRR, no murmurs, Chest CTAB, Abdo SNT, significant pain with passive straight leg raise, 5/5 plantar/dorsiflexion ankle, normal sensation LLE A/P Lumbar radiculopathy - acute on chronic. Avoid NSAIDS current as they have been ineffective and possible surgical candidate. Dexamethasone 4mg q6h. Restart acetaminophen as long as level normal. Consult ortho spine. T1DM - consult pharmacy for glycemic control PG Care Time/CCT Total # of Minutes Spent Total Time Spent with Patient: Total time spent is greater than 50% in coordination of care (as documented) at patient's floor/unit and/or counseling patient: Coding [place] [address] INT INP/OBS CARE 2/55MIN Patient Type Established Medical Decision Making High Complexity Diagnoses Radicular low back pain M54.10 Controlled type 1 diabetes mellitus, with long-term current use of insulin E10.9 Dyslipidemia E78.5
[2023-07-11] MEDS ORDERED: NALOXONE HCL 0.4 MG/1 ML VIAL/CARP IV PRN (13:15)
[2023-07-11] MEDS ORDERED: PHARMACY GLYCEMIC MGMT CONSULT PRN (13:28)
[2023-07-11] MEDS ORDERED: GLUCAGON FOR INJ 1 MG VIAL SQ PRN (13:42)
[2023-07-11] MEDS ORDERED: GLUCOSE 10 TAB/TUBE PO PRN (13:42)
[2023-07-11] MEDS ORDERED: DEXTROSE 50% 50 ML SYRINGE IV PRN (13:42)
[2023-07-11] MEDS ORDERED: GLUCOSE 40% GEL 15 GM TUBE PO PRN (13:42)
[2023-07-11] MEDS ORDERED: CARBOHYDRATES FOR HYPOGLYCEMIA PO PRN (13:42)
[2023-07-11] MEDS: PANTOprazole 40 MG in SYRINGE 0 ML IV ONE (13:50)
[2023-07-11] MEDS: LIDOCAINE 5% 1 PATCH TD STA (13:51)
[2023-07-11] MEDS: ACETAMINOPHEN 325 MG TAB PO SCH (13:55)
--- NOTE | 2023-07-11 14:01 | Magnetic Resonance Report ---
MR lumbar spine wo con CLINICAL HISTORY: LL back pain, ambulatory issues TECHNIQUE: Multiplanar sequences through the lumbar spine were obtained, without intravenous contrast . Comparison: Comparison is made to CT lumbar spine 07/11/2023 FINDINGS: The alignment is anatomical. L1-L2: No significant abnormality. L2-L3: No significant abnormality. L3-L4: No significant abnormality. L4-L5: Broad-based posterior disc bulge is seen without significant canal or neuroforaminal stenosis. L5-S1: Posterior disc extrusion is seen with severe canal and left neuroforaminal stenosis. The spinal ligaments are intact, without evidence of disruption or abnormal signal intensity. The spi nal cord is normal in signal intensity and there is no evidence of cord contusion. There is no eviden ce of an extradural, intradural, extramedullary or intramedullary lesion. Visualized soft tissues are normal. IMPRESSION: Posterior disc extrusion at L5-S1 with severe canal and left neuroforaminal stenosis. ACT 112: Negative or not required by law. Electronically signed by: Jesse Marinelli M.D. 07/11/2023 2:00 PM
[2023-07-11] MEDS: Patient's HEIGHT &/or WEIGHT Needed SCH (14:11)
--- NOTE | 2023-07-11 14:52 | XRay Report ---
XR chest 1V portable HISTORY: pre operative clearance COMPARISON: Chest 12/10/2017. FINDINGS: The lungs are clear. Cardiac silhouette is normal in size. No pleural effusions. No pneumot horax. IMPRESSION: No acute process. ACT 112: Negative or not required by law. Electronically signed by: Andre Lunsford M.D. 07/11/2023 2:51 PM
--- NOTE | 2023-07-11 15:05 | Pharmacy Report ---
Pharmacy Glycemic Short Note 2 - Date of Service July 11, 2023 - Glycemic Short BSG Results (Last 24 hours): 07/11/23 07/11/23 10:20 14:30 Glucose 170 H POC Glucose 84 OUTPATIENT ANTIDIABETIC REGIMEN: * Lantus 40 units Qam (if eating), Lantus 35 units HS, Novolog SSI - self adjusts insulin ASSESSMENT: * 43 year old, type 1 diabetic, admitted with back pain. Ortho consulted to determine if plans for procedure. Patient reports she took Lantus 40 units this AM and has not eaten anything yet today. She reports her BSGs have been very labile lately and noticing some lower BSGs in the mornings, so has been self adjusting to Lantus 35 units bid. She reports she had been using CR of 1:5 however BSGs have been elevated so is self adjusting her novolog dosing as well. Patient not able to give me an average number of units of insulin per day since she adjusts/changes so frequently. * Patient received solumedrol in ER and will be starting dexamethasone 4 mg iv q 6 hours this afternoon. Anticipate BSGs to rise with ongoing steroids. Reasonable to continue with scale for basal insulin at home this evening. PLAN FOR INPATIENT GLYCEMIC CONTROL: * Hold outpatient oral diabetes medications * Basal insulin * Lantus 40 units this AM (taken [facility]) * Lantus 15-30 units HS * Bolus insulin * NovoLog per scale ACHS or Q6hrs while NPO * Goal Range: Low 110 mg/dL - High 160 mg/dL * Correction Factor: 30 mg/dL/unit * Nutritional / Prandial insulin per carb ratio of 1 unit per 5 grams CHO consumed
[2023-07-11] MEDS ORDERED: DEXAMETHASONE SOD INJ 4 MG/ML VIAL IV SCH (16:00)
[2023-07-11] MEDS: dexAMETHasone 4 MG in SYRINGE 0 ML IV SCH (16:21)
[2023-07-11] MEDS: INSULIN ASPART PER UNIT CHARGE SC SCH (16:27)
--- NOTE | 2023-07-11 16:58 | Electrocardiogram Report ---
Test Reason : Blood Pressure : / mmHG Vent. Rate : 081 BPM Atrial Rate : 081 BPM P-R Int : 170 ms QRS Dur : 076 ms QT Int : 354 ms P-R-T Axes : 042 025 007 degrees QTc Int : 411 ms Normal sinus rhythm T wave abnormality, consider inferior ischemia Abnormal ECG When compared with ECG of 04-OCT-2008 06:27, T wave inversion no longer evident in Anterior leads Confirmed by Daniel Vázquez ([id number]) on 07/11/2023 4:57:53 PM Referred By: REFERRED SELF Confirmed By:Dylon Vázquez
[2023-07-11] MEDS: MoRPHine SULFATE 4 MG/ML 1 ML CARP\\VIAL IV PRN (17:51)
[2023-07-11] MEDS ORDERED: ACETAMINOPHEN 325 MG TAB PO PRN (18:07)
[2023-07-11] MEDS: ONDANSETRON INJ 2 MG/ML 2 ML VIAL IV PRN (19:08)
[2023-07-11] MEDS ORDERED: LANTUS PER UNIT CHARGE SQ SCH ×2 (21:00)
[2023-07-11] MEDS: LANTUS PER UNIT CHARGE SQ SCH (21:12)
[2023-07-11] MEDS: ATORVASTATIN 10 MG TAB PO SCH (21:17)
--- OUTSIDE RECORDS SUMMARY | 2023-07-11 22:53 | External Medical Summary | Summary of Care ---
Author Name Unknown Organization [facility] Address [address] [address] Phone [phone] Care Team Providers Care Senior Data Mining Analyst Name Role Phone Sortor Lyndsay Patel MD Primary Care Pro vider Reason for Visit * Reason Comments Follow Up 1y Encounter Details Date Type Department Care Team (Late st Contact Info) Description 05/30/2023 1:45 PM EST Office Visit Hematology/Oncology [facility] [place] [address] [facility] [place] [address] Jet Penn MD [address] [facility] [place] [address] Thrombocytosis*; Other iron deficiency anemia Allergies No known active allergiesdocumented as of this encounter (statuses as of 05/30/2023) Medications Medication Sig Dispensed Refills Start Date End Date Status ONE MitraSpan SYSTEM KIT KITIndications:DM type 1, goal A1c below 7 as directed 1 1 11/13/2001 Active GLUCAGON EMERGENCY KIT 1 MG IJIndications:DM type 1, goal A1c below 7 1 mg IM prn severe hypoglycemia 2 12 12/19/2002 Active HUMALOG 100 U/ML SC SOLNIndications:DM type 1, goal A1c below 7 as directed 2 box 12 12/19/2002 Active NOVOFINE 30 MISCIndications:DM type 1, goal A1c below 7 as directed 1 box 12 12/19/2002 Active ONE TOUCH YoungCurrent TEST STRIPS STRPIndications:DM type 1, goal A1c below 7 6- 7 times per day,3 mo supply 600 3 12/19/2002 Active B-D INS SYR U/F SHORT .5CC/30G MISCIndications:DM type 1, goal A1c below 7 as directed 100 12 12/19/2002 Active KETOSTIX STRPIndications:DM type 1, goal A1c below 7 as directed foil wrapped by Jolanta #[id number] 50 12 12/19/2002 Active Cholecalciferol (VITAMIN D) 50 MCG (2000 UT) Capsule Take 2,000 Units by mouth daily. 0 Active ferrous sulfate (FEOSOL) 325 (65 FE) MG TabletIndications:Th rombocytosis,Iron deficiency anemia, unspecified iron deficiency anemia type Take 1 tablet by mouth every other day 45 Tab 11 10/24/2019 Active Insulin Glargine 100 UNIT/ML Subcutaneous Solution (Lantus) Inject under the skin at bedtime. 0 Active Atorvastatin Calcium 10 MG Oral Tablet (Lipitor) Take 1 Tablet by mouth in the morning. 0 Active documented as of this encounter (statuses as of 05/30/2023) Active Problems Problem Noted Date Diagnosed Date Iron deficiency anemia 10/24/2019 documented as of this encounter (statuses as of 05/30/2023) Social History Tobacco Use Types Packs/Day Years Used Date Smoking Tobacco: Never Smokeless Tobacco: Never Tobacco Cessation:Counseling Given: Not Answered Alcohol Use Standard Drinks/Week Comments Yes 0 (1 standard drink = 0.6 oz pur e alcohol) occasionally Sex and Gender Information Value Date Recorded Sex Assigned at Not on file Gender Identity Not on file Sexual Orientation Not on file Job Start Date Occupation Industry Not on file Not on file Not on file documented as of this encounter Last Filed Vital Signs Vital Sign Reading Time Taken Comments Blood Pressure 139/85 05/30/2023 1:50 PM EST Pulse 101 05/30/2023 1:50 PM EST Temperature - - Respiratory Rate 16 05/30/2023 1:50 PM EST Oxygen Saturation 96% 05/30/2023 1:50 PM EST Inhaled Oxygen Concentration - - Weight 113.9 kg (251 lb 3.2 oz) 05/30/2023 1:50 PM EST Height - - Body Mass Index 37.1 10/21/2019 11:57 AM EDT documented in this encounter Progress Notes * Jet Penn MD - 05/30/2023 1:45 PM EST AMIE AVILA MR # [id number] :1980 43-year-old female, Date of consultation with me:10/21/2019 DIAGNOSIS: Thrombocytosis, Platelet count is around 480,000 in early September 2019. Appears to be iron deficiency anemia causing thrombocytosis Cervical lymph node which appears to be reactive in nature, has presence of fatty hilum and when I saw her on 10/21/2019, she does not any palpable lymphadenopathy. CURRENT TREATMENT: She will continue to take oral iron replacement therapy once every other day or 3 times a week. Sheis somewhat noncompliant about oral iron replacement therapy. DIAGNOSTIC WORKUP: She had a blood workup done in 07/2018 at [facility]: -WBC 6000, H&H of 12.4/40.3, MCV 90.6, Platelet count of 401,000, normal differential count. Recent blood workup done on 09/24/2019: -WBC 6800, H&H of 12.8/39, MCV 86, Platelet count of 480,000. -Normal liver function test -Normal kidney function test. -TSH --> 1.20. Ultrasound of the head and neck region (09/26/2019 at [facility]): -several prominent the cervical lymph nodes, which contained fatty hilum, has benign appearance on the ultrasound. INTERVAL HISTORY: She has come the clinic for the follow-up after 1 year or so. Currently she takes oral iron few times a week, somewhat noncompliant, she is having her menstrual period on regular basis, no bleeding from the sites, no abdominal symptoms, some mild back pain present, left shoulder discomfort with restricted movements, no cardiac or pulmonary symptoms, no ice craving, no new GI symptoms. No nausea, no vomiting. She has longstanding history of Diabetes mellitus, she is on insulin treatment since the age of 11. She has not seen any palpable lymph nodes in the neck region. No fever, no night sweats, current weight around 251 lb Family history: -her mom doing well, no cancer diagnosis -dad has Parkinson's disease, dementia, no cancer diagnosis. -she has 1 brother, who has Raynaud's phenomena. No cancer diagnosis. Past Medical History: Diagnosis Date DM type 1, goal A1c below 7 Past Surgical History: Procedure Laterality Date NONE Current Outpatient Medications Medication Sig Dispense Refill ONE TOUCH ULTRA SYSTEM KIT KIT as directed 1 1 GLUCAGON EMERGENCY KIT 1 MG IJ 1 mg IM prn severe hypoglycemia 2 12 HUMALOG 100 U/ML SC SOLN as directed 2 box 12 NOVOFINE 30 MISC as directed 1 box 12 ONE TOUCH ULTRA TEST STRIPS STRP 6- 7 times per day,3 mo supply 600 3 B-D INS SYR U/F SHORT .5CC/30G MISC as directed 100 12 KETOSTIX STRP as directed foil wrapped by Jolanta #[id number] 50 12 Cholecalciferol (VITAMIN D) 50 MCG (2000 UT) Capsule Take 2,000 Units by mouth daily. ferrous sulfate (FEOSOL) 325 (65 FE) MG Tablet Take 1 tablet by mouth every other day 45 Tab 11 Insulin Glargine 100 UNIT/ML Subcutaneous Solution (Lantus) Inject under the skin at bedtime. Atorvastatin Calcium 10 MG Oral Tablet (Lipitor) Take 1 Tablet by mouth in the morning. No current facility-administered medications for this visit. No family history on file. Social History Socioeconomic History Marital status: Single Spouse name: Not on file Number of children: Not on file Years of education: Not on file Highest education level: Not on file Occupational History Not on file Social Needs Financial resource strain: Not on file Food insecurity Worry: Not on file Inability: Not on file Transportation needs Medical: Not on file Non-medical: Not on file Tobacco Use Smoking status: Never Smoker Substance and Sexual Activity Alcohol use: Yes Comment: occasionally Drug use: Not on file Sexual activity: Not on file Lifestyle Physical activity Days per week: Not on file Minutes per session: Not on file Stress: Not on file Relationships Social connections Talks on phone: Not on file Gets together: Not on file Attends mandaeism service: Not on file Active member of club or organization: Not on file Attends meetings of clubs or organizations: Not on file Relationship status: Not on file Intimate partner violence Fear of current or ex partner: Not on file Emotionally abused: Not on file Physically abused: Not on file Forced sexual activity: Not on file Other Topics Concern Not on file Social History Narrative Not on file Vaping/E-Cigarette Use Vaping/E-Cigarette Substances Vaping/E-Cigarette Devices On Exam: BP 139/85 (BP Site: Left Arm, BP Position: Sitting, BP Cuff Size: Large) | Pulse 101 | Resp 16 | Wt113.9 kg (251 lb 3.2 oz) | SpO2 96% | BMI 37.10 kg/m | BSA 2.36 m Constitutional: Patient is alert, cooperative and oriented x 3. Well built woman, Patient is in no acute distress. HEENT: No icterus, no pallor, Throat and pharynx normal. Sinuses are non-tender. Neck: Supple and without lymphadenopathy or masses. No JVD. No Palpable supraclavicular lymph nodes. Lungs: Clear to auscultation. Bilateral symmetric air entry. No wheezing or rhonchi. Cardiovascular: Normal heart sounds, no murmurs.Regular rate and rhythm. Abdomen: soft, nontender, no hepatomegaly, no splenomegaly. Bowel sounds are normal. Neurological: No gross focal neurological deficit; walks with a normal gait. Extremities: No finger clubbing, No cyanosis. No leg edema. Skin:: No skin rash. SPINE: No spinal or paraspinal tenderness. No palpable lymphadenopathy in the axilla. LABS: Blood workup done on 10/21/2019: - Serum iron 54, TIBC 322, iron saturation 17% - Ferritin level --> 10.7 which is on the lower side - WBC- 8100, H&H- 12.4/37.9, Platelet- 425,000. She started taking oral iron replacement therapy once every other day but somewhat noncompliant. Blood workup done on 12/14/2020 at [facility]: -WBC 7800, H&H of 14.6/43.4, MCV 91.4, Platelet count of 411,000. -Serum iron 57, TIBC 321. Blood workup done on 12/09/2021 at [facility]: -WBC 7300, H&H of 12.8/40.3, Platelet 402,000. Blood workup done on 08/11/2022: -WBC 8000, H&H of 12.8/37.3, Platelet count of 304801. IMAGING: As described above ASSESSMENT AND PLAN: 43-year-old female, - cervical lymph nodes, which appears to be reactive in nature, at present she does not any palpable lymphadenopathy, no other local symptoms, no other ENT symptoms. Ultrasound of the neck showed benign appearing lymph nodes. No further workup is indicated at this time. -thrombocytosis, Platelet count is around 480,000 in early September 2019. Evidence of iron deficiency noted. Now she is on oral iron replacement therapy once every other day but somewhat noncompliant. Menorrhagia noted. Now Platelet count is In the normal range. Hemoglobin level is normal. She will continue oral iron replacement therapy once every other day/3 times a week. I would like to get CBCD, Ferritin, iron profile , to be done at [facility]. Does not require extensive workup for thrombocytosis at this time. I am planning to see her back in the clinic in about [address] Jet Penn Hem/Onc (This note was completed using the dictation program Fluency Direct. As such, there may be misspellings, word substitutions, or other variations that should not change the essence of the clinical content of this encounter note. If there is need for further clarification, please direct questions to the provider listed above.) documented in this encounter Nursing Notes * Olimpia Groves CMA - 05/30/2023 1:51 PM EST Patient identifed by name and birthdate Do you have any concerns about pain management for today's visit? No Living Will or Advance Directive for Health Care as noted on the problem list. [facility] is a way you can talk to your provider on line through e-mail. Would you like to sign up? I can activate it for you? No Filed Vitals: 05/30/23 1350 BP: 139/85 Pulse: 101 Resp: 16 SpO2: 96% Weight: 113.9 kg (251 lb 3.2 oz) Patient was instructed to not get up on the exam table/exam chair until directed and assisted by their provider; patient is to remain seated in the chair/ wheelchair/ exam table/ exam chair for fall prevention and safety reasons. Patient is aware to have assistance to step down off exam table/exam chair with personnel. Patient voiced full comprehension of instructions. documented in this encounter Plan of Treatment Upcoming Encounters Date Type Department Care Team (Late st Contact Info) Description 05/30/2024 1:45 PM EST Office Visit Hematology/Oncology [facility] [place] [address] [place] [address] Jet Penn MD [address] [place] [address] Scheduled Orders Name Type Priority Associated Diagnoses Orde r Schedule CBC WITH WBC DIFFERENTIAL Lab STAT Thrombocytosis Other iron deficiency anemia Expected: 08/17/2023, Expires: 05/30/2024 IRON SCREEN, INCLUDING TIBC Lab Routine Thrombocytosis Other iron deficiency anemia Expected: 08/17/2023, Expires: 05/30/2024 FERRITIN Lab Routine Thrombocytosis Other iron deficiency anemia Expected: 08/17/2023, Expires: 05/30/2024 Health Maintenance Due Date Last Done Comments Hepatitis B (1 of 3 - 3-dose series) 1980 COVID-19 Vaccine (#1) 1982 Depression Screening 1994 HIV Screening 1997 Hepatitis C Screening 02/09/2000 DTaP,Tdap,and Td Vaccines (1 - Tdap) 2001 Pap Smear 2003 Cervical Cancer Screening 02/09/2012 HPV/Co-Test 02/09/2012 Mammogram 2022 Influenza Vaccine (FLU shot) (#1) 2023 Lipid Panel 08/12/2027 08/11/2022 GARDASIL-HPV IMMUNIZATION SERIES Aged Out No longer eligible based on patient's age to complete this topic MENINGOCOCCAL (MENACTRA/MENVEO) Aged Out No longer eligible based on patient's age to complete this topic Pneumococcal Vaccine: Pediat rics (0 to 5 Years) and At-Risk Patients (6 to 64 Years) Aged Out No longer eligi ble based on patient's age to complete this topic documented as of this encounter Medical Devices Not on filedocumented as of this encounter Visit Diagnoses Diagnosis Thrombocytosis- Primary Essential thrombocythemia Other iron deficiency anemia documented in this encounter Care Teams Senior Data Mining Analyst Relationship Specialty Start Date End Date Sortor Lyndsay Patel MD [address] [facility] [address] [facility] [address] PCP - General 02/18/03 documented as of this encounter"
[2023-07-12] MEDS: INSULIN ASPART PER UNIT CHARGE SC SCH ×3 (00:20→23:45)
[2023-07-12 07:44] LABS: Basophils # (auto) 0.01 K/uL (0.00-0.20); Basophils % (auto) 0.1 %; Hematocrit (blood only) 38.3 % (37.0-47.0); Hemoglobin 12.9 g/dl (12.0-16.0); Immature Granulocytes # (auto) 0.05 K/uL (0.01-0.20); Immature Granulocytes % (auto) 0.4 %; Lymphocytes % (auto) 9.9 %; Mean Corpuscular Hemoglobin 29.6 pg (25.0-34.0); Mean Corpuscular Hgb Conc 33.7 g/dL (32.0-36.0); Mean Corpuscular Volume 87.8 fL (80.0-100.0); Mean Platelet Volume 10.1 fL (9.4-12.4); Monocytes # (auto) 0.45 K/uL (0.11-0.59); Monocytes % (auto) 3.4 %; Neutrophils # (auto) 11.37 K/uL (1.40-6.50); Neutrophils % (auto) 86.2 %; Platelet Count 353 K/uL (130-400); RDW Coefficient of Variation 14.4 % (11.5-14.5); RDW Standard Deviation 46.6 fL (36.4-46.3); Red Blood Count 4.36 M/uL (4.20-5.40); White Blood Count 13.18 K/ul (4.8-10.8)
[2023-07-12 07:59] LABS: BUN Creatinine Ratio 15.3 (10-20); Calcium 9.1 mg/dl (8.6-10.3); Creatinine Clr Calc Pharmacy 137.1 ml/min; Est GFR (African American) 120.6 ml/min; Potassium 4.2 mmol/L (3.5-5.1)
[2023-07-12 08:08] LABS: Prothrombin Time 10.6 Seconds (9.0-12.0)
[2023-07-12] MEDS: LANTUS PER UNIT CHARGE SQ SCH ×2 (08:31→20:36)
[2023-07-12] MEDS: FERROUS SULFATE 325 MG TAB PO SCH (08:32)
--- NOTE | 2023-07-12 08:59 | Orthopedic Consultation ---
Date of Consultation July 12, 2023 Assessment & Plan (1) Lumbar disc herniation with radiculopathy: Assessment acute on chronic disc herniation with radiculopathy. Plan at this time and lengthy conversation with the patient reviewing her CAT scan MRI findings. She does have a massive calcified disc that clearly has been present for considerable amount of time but on top of this she has a new disc accounting for her acute radiculopathy. Explained to patient that I can leaving town tomorrow and my concern with any surgical procedures that I would not be available for postoperative issues. She understands. Will add gabapentin to her medical regiment which includes IV Decadron. Hopefully she will respond these medications over the next 24 to 40 hours and be able to return home. We may want to consider medical DVT prophylaxis if she were to discharge. She is interested in surgery but would wait till I return. Clearly if there is a marked change or decline in status we could consult another spine surgeon. History of Present Illness Reason for Consultation: Left sciatica Attending Physician: Ananda Schmidt MD History of Present Illness This is a very pleasant 43-year-old female who presents to the emergency room with a marked left leg pain and inability to ambulate. She does have a history of intermittent sciatica managed over the years with her chiropractor. This has been successful. Recently has been much worse incapacitating nature. She has pain in the lumbosacral region "tailbone region" into the left buttock posterior thigh occasionally below the knee to her foot. It does limit her ability to stand and ambulate any distance without severe radicular discomfort. She denies any loss of bowel or bladder function or perineal numbness. The right lower extremity is asymptomatic. Allergies Allergy/AdvReac Type Severity Reaction Status Date / Time No Known Drug Allergies Allergy Verified 07/11/23 11:36 Home Medications Medication Instructions Recorded Confirmed Type ferrous sulfate 325 mg (65 mg 325 mg PO Q OTHER DAY 02/11/20 07/11/23 History iron) tablet flash glucose scanning reader #1 ea 01/06/22 10/27/22 Rx (FreeStyle Barbara 2 Jackson) mecobalamin (vitamin B12) 1,000 2,000 mcg PO DAILY 01/19/22 07/11/23 History mcg chewable tablet blood sugar diagnostic (OneTouch #200 ea 04/03/22 10/27/22 Rx Ultra Test strips) insulin pump cart,cont inf,BT #15 ea 07/18/22 10/27/22 Rx (Omnipod Dash Pods (Gen 4) subcutaneous cartridge) lancets 33 gauge (OneTouch Delica #100 ea 08/17/22 10/27/22 History Lancets) atorvastatin 10 mg tablet 10 mg PO QPM #90 tabs 08/30/22 07/11/23 Rx pen needle, diabetic 32 gauge x #400 ea 10/04/22 03/08/23 Rx 5/32" (BD Liliane 2nd Gen Pen Needle) insulin syringe-needle U-100 0.5 #200 ea 01/25/23 Rx mL 31 gauge x 5/16" (BD Insulin Syringe Ultra-Fine) cholecalciferol (vitamin D3) 1,250 See Rx Instructions PO WEEKLY #13 03/09/23 07/11/23 Rx mcg (50,000 unit) capsule caps flash glucose sensor (FreeStyle #6 ea 05/08/23 Rx Barbara 2 Sensor kit) acetaminophen 500 mg tablet 500 mg PO Q6H PRN Pain 07/11/23 07/11/23 History ibuprofen 200 mg tablet (Advil) 200 mg PO Q6H PRN Pain 07/11/23 07/11/23 History insulin aspart U-100 100 unit/mL See Rx Instructions .Route .COMPLEX 07/11/23 07/11/23 History subcutaneous solution (Novolog U-100 Insulin aspart) insulin lispro 100 unit/mL 40 unit subcut BID 07/11/23 07/11/23 History subcutaneous solution Patient History Medical History Acute bacterial sinusitis Chest pain Cough productive of purulent sputum Flank pain Urinary symptom or sign Surgical History History of wisdom tooth extraction S/P foot surgery Family History Grandmother (Maternal) Colorectal cancer Father Parkinson disease Renal failure Grandfather (Maternal) Eosinophilic leukemia Family/Other Ovarian cancer Denies family history of Prostate cancer Crohn's disease Myocardial infarction Breast cancer Ulcerative colitis Social History Smoking Status: Never smoker Hx Alcohol Use: No Hx Substance Use: No Preferred Language: Lao Communication Ability: Effective Visual Impairment: No Limitations Hearing Ability: Normal Operating Room Nurse Required: No Beliefs That Will Affect Care: None marital status: Single Current Living Situation: Family current occupational status: employed Other Information That Helps Us Care for You: No Feels Safe at Home: Yes Dental Care, Regularly: Yes Physical Activity Frequency: 1-2 Times per Week Seatbelt Use: always Sunscreen Use: Yes Assistive Devices: None Physical Exam Physical Exam: On exam she is in bed. She has marked tension signs straight leg raising on the left negative on the right. She has plus 5 out of 5 plantarflexion dorsiflexion central sluggish quadriceps on the left. Sensory is symmetric and intact. She does have a hint of contralateral straight leg raise tension signs on the right. Results & Data Vital Signs (Past 12 Hours) Vital Signs Temp Pulse Resp BP BP Pulse Ox Pulse Ox 07/12/23 07:26 36.6 C 94 H 18 124/75 98 07/11/23 21:25 36.7 C 16 126/78 95 07/11/23 21:17 07/11/23 21:17 95 O2 Del Method O2 Del Method 07/12/23 07:26 Room Air 07/11/23 21:25 Room Air 07/11/23 21:17 Room Air 07/11/23 21:17 Room Air
[2023-07-12] MEDS: GABAPENTIN 300 MG CAP PO SCH (10:38)
[2023-07-12] MEDS: LIDOCAINE 5% 1 PATCH TD SCH (10:38)
[2023-07-12] MEDS: bisacodyL 5 MG TABEC PO SCH (12:29)
[2023-07-12] MEDS: oxyCODONE HCL IR 5 MG TAB (IMMEDIATE RELEASE) PO PRN (12:29)
[2023-07-12] MEDS: ACETAMINOPHEN 500 MG TAB PO SCH (13:16)
--- NOTE | 2023-07-12 14:23 | Pharmacy Report ---
Pharmacy Glycemic Short Note 2 - Date of Service July 12, 2023 - Glycemic Short BSG Results (Last 24 hours): 07/11/23 07/11/23 07/11/23 14:30 15:39 19:46 Glucose POC Glucose 84 101 H 179 H 07/11/23 07/12/23 07/12/23 21:04 00:18 04:03 Glucose POC Glucose 214 H 180 H 204 H 07/12/23 07/12/23 07/12/23 06:53 07:28 11:35 Glucose 200 H POC Glucose 203 H 268 H OUTPATIENT ANTIDIABETIC REGIMEN: * Lantus 40 units Qam (if eating), Lantus 35 units HS, Novolog SSI - self adjusts insulin ASSESSMENT: 07/12 * Patient received total of 77 units of insulin yesterday, of which 70 units were basal insulin * Fasting BSG 203 mg/dL - Ordered 40 units of basal insulin this AM. Discussed with RN that patient may want to adjust insulin since she adjusts frequently at home so okay to give 35 units if not wanting to take full dose. Patient only wanting 35 units of basal this AM. * Diet later ordered in morning and patient ate breakfast. Insulin given later this AM for coverage, lunch BSG checked only ~1 hour after insulin therefore elevated. Expressed my concerns with RN about overcorrecting BSG and plan was to collect a BSG closer to ~2 hours after last insulin administration. Lunch trays must have came early and patient covered with insulin early. * Went in and talked with patient this afternoon about plan. I did talk with her about my concerns for BSGs to rise further with ongoing steroids, however patient very fearful of blood sugars going low overnight that she reports the max dose she would be willing to take of Lantus is 35 units at HS time. * Patient agreeable to having a couple of overnight checks to see if she were to require more insulin. 07/11 * 43 year old, type 1 diabetic, admitted with back pain. Ortho consulted to determine if plans for procedure. Patient reports she took Lantus 40 units this AM and has not eaten anything yet today. She reports her BSGs have been very labile lately and noticing some lower BSGs in the mornings, so has been self adjusting to Lantus 35 units bid. She reports she had been using CR of 1:5 however BSGs have been elevated so is self adjusting her novolog dosing as well. Patient not able to give me an average number of units of insulin per day since she adjusts/changes so frequently. * Patient received solumedrol in ER and will be starting dexamethasone 4 mg iv q 6 hours this afternoon. Anticipate BSGs to rise with ongoing steroids. Reasonable to continue with scale for basal insulin at home this evening. PLAN FOR INPATIENT GLYCEMIC CONTROL: * Hold outpatient oral diabetes medications * Basal insulin * Lantus 35 units this AM, then plan for 40 units daily starting tomorrow * Lantus 35 units HS * Bolus insulin * NovoLog per scale ACHS or Q6hrs while NPO * Goal Range: Low 110 mg/dL - High 160 mg/dL * Correction Factor: 30 mg/dL/unit * Nutritional / Prandial insulin per carb ratio of 1 unit per 4 grams CHO consumed
--- NOTE | 2023-07-12 19:15 | Hospitalist Progress Note ---
Date of Service July 12, 2023 Assessment & Plan (1) Radicular low back pain: Plan: Appreciate review by Dr Patel - unable to perform surgery this week as not around in case there will be a complication Gabapentin added Acetaminophen 1g TID Oxycodone 5-10mg PRN for breakthrough pain Morphine only if oxycodone not effective (2) Controlled type 1 diabetes mellitus, with long-term current use of insulin: Plan: Phamarcy consulted for glycemic control. Discussed with patient and reviewed regimen (3) Dyslipidemia: Plan: -Continue statin Plan VTE Prophylaxis - low risk Diet - regular Disposition - continued admission Admission and Anticipated Discharge Date Admission Date: July 11, 2023 Subjective Very concerned about her glucose level as she was originally NPO but now with T1DM in place she hasn't had her morning insulin on time. No significant increase with steroids however. Not moved significantly to see if pain much better or worse. Review of Systems Review of Systems: All systems reviewed & are unremarkable except as noted in HPI & below Physical Exam Constitutional: WD/WN, vitals as above Respiratory: normal respiratory effort, lungs clear to auscultation Cardiovascular: RRR, no murmur, no edema Gastrointestinal (Abdomen): normal bowel sounds, soft, nontender, no hepatosplenomegaly Musculoskeletal: Left L5 distribution pain without numbness, no weakness on dorsi/plantarflexion ankle. Skin: no rashes, warm and dry Psychiatric: A+Ox3, euthymic affect Results & Data Results & Data Vital Signs (Past 12 Hours) Vital Signs Temp Pulse Resp BP Pulse Ox O2 Del Method 07/12/23 14:43 36.5 C 104 H 18 113/67 94 Room Air 07/12/23 07:26 36.6 C 94 H 18 124/75 98 Room Air PG Care Time/CCT Total # of Minutes Spent Total Time Spent with Patient: Total time spent is greater than 50% in coordination of care (as documented) at patient's floor/unit and/or counseling patient: Coding Level of Care Code 62564 SUB INP/OBS CARE 2/35MIN Diagnoses Radicular low back pain M54.10 Controlled type 1 diabetes mellitus, with long-term current use of insulin E10.9 Dyslipidemia E78.5
[2023-07-13 08:11] LABS: Basophils # (auto) 0.02 K/uL (0.00-0.20); Basophils % (auto) 0.2 %; Hematocrit (blood only) 38.5 % (37.0-47.0); Hemoglobin 12.7 g/dl (12.0-16.0); Immature Granulocytes # (auto) 0.06 K/uL (0.01-0.20); Immature Granulocytes % (auto) 0.5 %; Lymphocytes # (auto) 1.12 K/uL (1.20-3.40); Lymphocytes % (auto) 9.4 %; Mean Corpuscular Hemoglobin 29.1 pg (25.0-34.0); Mean Corpuscular Volume 88.1 fL (80.0-100.0); Mean Platelet Volume 10.2 fL (9.4-12.4); Monocytes # (auto) 0.36 K/uL (0.11-0.59); Neutrophils % (auto) 86.9 %; Platelet Count 357 K/uL (130-400); RDW Coefficient of Variation 14.5 % (11.5-14.5); RDW Standard Deviation 46.2 fL (36.4-46.3); Red Blood Count 4.37 M/uL (4.20-5.40); White Blood Count 11.96 K/ul (4.8-10.8)
[2023-07-13 08:28] LABS: BUN Creatinine Ratio 22.1 (10-20); Calcium 8.8 mg/dl (8.6-10.3); Creatinine Clr Calc Pharmacy 128.2 ml/min; Est GFR (African American) 111.2 ml/min; Est GFR (Non-African American) 95.9 ml/min; Potassium 4.1 mmol/L (3.5-5.1)
--- NOTE | 2023-07-13 08:30 | Orthopedic Progress Note ---
Date of Service July 13, 2023 Assessment & Plan (1) Lumbar disc herniation with radiculopathy: Plan: At this time we will continue medications for initial management. Hopefully she will begin to improve the next day or so. At that point initiate a course of physical therapy hopefully transition to home. Will follow-up with her in approximately a week for possible surgical intervention. She may shower today. Admission and Anticipated Discharge Date Admission Date: July 11, 2023 Subjective Patient noting some improvement with her medications including Neurontin and steroids. She is still concerned that any prolonged standing walking is limited. Physical Exam Physical Exam: On exam she is sitting up at the bedside. She is relatively comfortable. Still significant tension signs of the left lower extremity. Results & Data Vital Signs (Past 12 Hours) Vital Signs Temp Pulse Resp BP Pulse Ox O2 Del Method 07/13/23 07:40 36.5 C 80 18 143/81 H 95 Room Air
--- NOTE | 2023-07-13 11:06 | Pharmacy Report ---
Pharmacy Glycemic Short Note 2 - Date of Service July 13, 2023 - Glycemic Short BSG Results (Last 24 hours): 07/12/23 07/12/23 07/12/23 11:35 16:37 20:17 Glucose POC Glucose 268 H 192 H 155 H 07/12/23 07/13/23 07/13/23 23:29 03:26 07:19 Glucose 223 H POC Glucose 220 H 200 H 07/13/23 07:43 Glucose POC Glucose 216 H OUTPATIENT ANTIDIABETIC REGIMEN: * Lantus 40 units Qam (if eating), Lantus 35 units HS, Novolog SSI - self adjusts insulin ASSESSMENT: 07/13 * Patient received total of 125 units of insulin yesterday, of which 70 units were basal * Fasting BSG 216 mg/dL - increased basal insulin this AM to home dose of 40 units. Plan to tighten novolog this morning to account for ongoing steroids as BSGs still >goal. * Will continue with overnight checks per patient request. Could reevaluate tomorrow AM if fasting still above goal to increase basal. Would recommend discussing with patient to ensure agreeable with plan. 07/12 * Patient received total of 77 units of insulin yesterday, of which 70 units were basal insulin * Fasting BSG 203 mg/dL - Ordered 40 units of basal insulin this AM. Discussed with RN that patient may want to adjust insulin since she adjusts frequently at home so okay to give 35 units if not wanting to take full dose. Patient only wanting 35 units of basal this AM. * Diet later ordered in morning and patient ate breakfast. Insulin given later this AM for coverage, lunch BSG checked only ~1 hour after insulin therefore elevated. Expressed my concerns with RN about overcorrecting BSG and plan was to collect a BSG closer to ~2 hours after last insulin administration. Lunch trays must have came early and patient covered with insulin early. * Went in and talked with patient this afternoon about plan. I did talk with her about my concerns for BSGs to rise further with ongoing steroids, however patient very fearful of blood sugars going low overnight that she reports the max dose she would be willing to take of Lantus is 35 units at HS time. * Patient agreeable to having a couple of overnight checks to see if she were to require more insulin. 07/11 * 43 year old, type 1 diabetic, admitted with back pain. Ortho consulted to determine if plans for procedure. Patient reports she took Lantus 40 units this AM and has not eaten anything yet today. She reports her BSGs have been v otto labile lately and noticing some lower BSGs in the mornings, so has been self adjusting to Lantus 35 units bid. She reports she had been using CR of 1:5 however BSGs have been elevated so is self adjusting her novolog dosing as well. Patient not able to give me an average number of units of insulin per day since she adjusts/changes so frequently. * Patient received solumedrol in ER and will be starting dexamethasone 4 mg iv q 6 hours this afternoon. Anticipate BSGs to rise with ongoing steroids. Reasonable to continue with scale for basal insulin at home this evening. PLAN FOR INPATIENT GLYCEMIC CONTROL: * Hold outpatient oral diabetes medications * Basal insulin * Lantus 40 units daily * Lantus 35 units HS * Bolus insulin * NovoLog per scale ACHS or Q6hrs while NPO * Goal Range: Low 110 mg/dL - High 160 mg/dL * Correction Factor: 20 mg/dL/unit * Nutritional / Prandial insulin per carb ratio of 1 unit per 4 grams CHO consumed
[2023-07-13] MEDS: CeleBREX 200 MG CAP PO SCH (11:21)
[2023-07-13] MEDS: bisacodyL 5 MG TABEC PO SCH (21:01)
--- NOTE | 2023-07-13 22:33 | Hospitalist Progress Note ---
Date of Service July 13, 2023 Assessment & Plan (1) Radicular low back pain: Plan: Appreciate review by Dr Patel - unable to perform surgery this week as not around in case there will be a complication Gabapentin added Continue dexamethasone 4mg q6h, will defer to oncoming provider taper of this Acetaminophen 1g TID Add celebrex 200mg PO BID Oxycodone 5-10mg PRN for breakthrough pain Morphine only if oxycodone not effective Lidocaine patch Encourage continued movement PT Plan discharge over the weekend - patient feels she will be ready on Sunday (2) Controlled type 1 diabetes mellitus, with long-term current use of insulin: Plan: Phamarcy consulted for glycemic control. Discussed with patient and reviewed regimen (3) Dyslipidemia: Plan: -Continue statin Plan VTE Prophylaxis - given limited mobility, obesity will start Lovenox 40mg SQ daily Diet - regular Disposition - continued admission on med/surg Admission and Anticipated Discharge Date Admission Date: July 11, 2023 Anticipated date of discharge: 07/15/23 Subjective Improve mobility with utilizing oxycodone. Physical therapy helping. She feels she may be ready to be discharged on Sunday as this was previously discussed with Dr. Patel. Physical Exam Constitutional: WD/WN, vitals as above Respiratory: normal respiratory effort Musculoskeletal: No new leg weakness or change in sensation Skin: no rashes, warm and dry Psychiatric: A+Ox3, euthymic affect Results & Data Results & Data Vital Signs (Past 12 Hours) Vital Signs Temp Pulse Resp BP Pulse Ox O2 Del Method 07/13/23 21:12 36.7 C 87 16 132/80 96 Room Air 07/13/23 15:03 36.4 C L 81 16 123/76 94 Room Air PG Care Time/CCT Total # of Minutes Spent Total Time Spent with Patient: Total time spent is greater than 50% in coordination of care (as documented) at patient's floor/unit and/or counseling patient: Coding Level of Care Code 86422 SUB INP/OBS CARE 2/35MIN Diagnoses Radicular low back pain M54.10 Controlled type 1 diabetes mellitus, with long-term current use of insulin E10.9 Dyslipidemia E78.5
[2023-07-14 07:11] LABS: Basophils # (auto) 0.01 K/uL (0.00-0.20); Basophils % (auto) 0.1 %; Hematocrit (blood only) 36.9 % (37.0-47.0); Hemoglobin 12.6 g/dl (12.0-16.0); Immature Granulocytes # (auto) 0.03 K/uL (0.01-0.20); Immature Granulocytes % (auto) 0.3 %; Lymphocytes % (auto) 13.4 %; Mean Corpuscular Hemoglobin 29.6 pg (25.0-34.0); Mean Corpuscular Hgb Conc 34.1 g/dL (32.0-36.0); Mean Corpuscular Volume 86.6 fL (80.0-100.0); Mean Platelet Volume 10.1 fL (9.4-12.4); Monocytes # (auto) 0.49 K/uL (0.11-0.59); Monocytes % (auto) 4.7 %; Neutrophils # (auto) 8.53 K/uL (1.40-6.50); Neutrophils % (auto) 81.5 %; Platelet Count 354 K/uL (130-400); RDW Coefficient of Variation 14.4 % (11.5-14.5); Red Blood Count 4.26 M/uL (4.20-5.40); White Blood Count 10.46 K/ul (4.8-10.8)
[2023-07-14 07:21] LABS: BUN Creatinine Ratio 18.4 (10-20); Creatinine Clr Calc Pharmacy 113.5 ml/min; Est GFR (African American) 95.9 ml/min; Est GFR (Non-African American) 82.7 ml/min
[2023-07-14] MEDS: ENOXAPARIN INJ 40 MG/0.4 ML SYR SQ SCH (08:39)
--- NOTE | 2023-07-14 12:49 | Discharge Summary ---
Date of Service July 14, 2023 Admission HPI Per Admitting Provider Roberta is a 43 year old female with a PMH significant for Type 1 DM and chronic lumbar back pain who presented to the [facility] ED on 07/11/23 with complaints of acute exacerbation of her low back pain with radiation down her left LE. She remained stable in the ED. Labs were significant for a glucose of [address] of the lumbar spine was read as "1. No acute fractures within the lumbar spine. 2. There is a large partially calcified left paracentral disc extrusion at L5-S1 measuring 12 x 12 mm. This results in severe central canal narrowing 3. A 5 mm central/left paracentral focal disc protrusion at L4-5 resulting in mild to moderate central canal narrowing and moderate narrowing of the left lateral recess preop". The ED staff consulted and spoke to Dr. Patel who recommended medicine admission, MRI of the lumbar spine, and pain management. He will evaluate the patient tomorrow to determine need for surgery. Prior to admission the patient was given 15 mg IV toradol, 125 mg IV methylpr ednisolone, 2 doses of 4 mg IV morphine, 4 mg IV zofran, and 500 mL NSS. At the time of the exam the patient was lying in bed in no acute distress. She was unable to tolerate the MRI as she was in too much pain. She states that she went on retreat 2 weeks ago and slept on an uncomfortable mattress. She had mild lower back pain with some radiation down the left lower extremity on the lateral aspect down to the left knee. Her pain was manageable over the past week and a half but she was taking 1000 mg of tylenol q6h and 800 mg Ibuprofen q6h around the clock. Approximately 3 days ago her pain became significantly worse in the same distribution of the low lumbar back with radiation into the right buttocks and down the left lateral leg to the left knee. She denies recent trauma before or after, saddle anesthesia, loss of bowel or bladder function and LLE weakness. She has been using a walker to ambulate as she has been getting relief leaning forward when standing. She has intermittent numbness in the left foot in certain positions but currently, while lying flat she is without paresthesias. When asked, she uses basal/bolus insulin and has been taking 35 units lantus BID with a correction factor. Principal Diagnosis Lumbar disc herniation, back pain Discharge Exam The patient is awake, alert and oriented 3, well developed and well nourished, normocephalic and atraumatic, lying in bed and in no acute distress. HEENT--PERRL, EOMI, mucous membranes and oropharynx mildly dry Neck--supple. No JVD. No bruits. Thyroid normal, trachea midline, no adenopathy. Heart--normal S1 and S2. No murmurs, rubs or gallops. Lungs--clear bilaterally, no respiratory distress, no accessory muscle use. Abdomen--normal bowel sounds and soft. Extremities--no cyanosis or clubbing. No edema. Dermatologic--normal skin turgor, normal color, no abnormal lymph nodes, no rash. Neurologic--cranial nerves II through XII grossly intact. Rheumatologic--normal range of motion. Psychiatric--normal affect. Discharge Data Allergies Allergy/AdvReac Type Severity Reaction Status Date / Time No Known Drug Allergies Allergy Verified 07/11/23 11:36 Consultations 07/11/23 12:40 Consult Orthopedic Surgery Routine 07/11/23 12:46 ED Decision to Admit Stat Ordered Studies 07/11/23 10:07 CT lumbar spine wo con Stat 07/11/23 12:09 MRI Lumbar Spine [MR lumbar spine wo con] Stat Hospital Course (1) Radicular low back pain: Appreciate review by Dr Patel - unable to perform surgery this week as not around in case there will be a complication Gabapentin added Continue dexamethasone 4mg q6h, will defer to oncoming provider taper of this Acetaminophen 1g TID Add celebrex 200mg PO BID Oxycodone 5-10mg PRN for breakthrough pain Patient feels she could be discharged today after taking a shower Discharge home on p.o. oxycodone 5 mg every 4 as needed Also asked to follow-up with Dr. Patel spine surgery in 1 week (2) Controlled type 1 diabetes mellitus, with long-term current use of insulin: Phamarcy consulted for glycemic control. Discussed with patient and reviewed regimen (3) Dyslipidemia: -Continue statin Plan VTE Prophylaxis - given limited mobility, obesity will start Lovenox 40mg SQ daily Diet - regular Disposition -discharge home Total Time Total Time Spent Total Time Spent (In Minutes): 35 Discharge Plan Discharge Items Patient Disposition: Home - Self-Care Reason For Visit: UNCONTROLLED BACK PAIN Discharge Diagnosis: Back pain, lumbar disc herniation Activity: Per Instructions section Non-emergency contact: Primary Care Provider Call non-emergency contact if: you have any medication questions Follow-up/Referrals: Jonnathan Pennington MD [Primary Care Provider] - Diet: Regular Addtl Attending Provider Instructions: Please make appointment to follow-up with Dr. Patel spine surgery in 1 week. Pending Studies at Discharge: No Stand-Alone Forms: My [employer], Smoking Cessation Medications and DC Order Prescriptions: New oxycodone 5 mg Tablet 5 mg PO Q4H PRN (Reason: pain) Qty: 10 0RF Continued (DME) pen needle, diabetic [BD Liliane 2nd Gen Pen Needle] 32 gauge x 5/32" needle See Rx Instructions miscellaneous .MEDSUPPLY Qty: 400 3RF Rx Instructions: Use a new pen needle up to 4x a day (DME) insulin syringe-needle U-100 [BD Insulin Syringe Ultra-Fine] 0.5 mL 31 gauge x 5/16" syringe See Dose Instructions .ROUTE .MEDSUPPLY Qty: 200 3RF Rx Instructions: To use with a new [id number] a day cholecalciferol (vitamin D3) 1,250 mcg (50,000 unit) capsule See Rx Instructions PO WEEKLY Qty: 13 1RF Rx Instructions: 09833 units PO weekly; atorvastatin 10 mg tablet 10 mg PO QPM Qty: 30 5RF (DME) OneTouch Ultra Test Strip See Rx Instructions .Route Qty: 200 5RF Rx Instructions: Test blood sugars 4 times a day and as needed (DME) FreeStyle Barbara 2 Sensor Kit See Rx Instructions .Route Qty: 2 5RF Rx Instructions: Change every 14 days insulin lispro 100 unit/mL solution 40 unit subcut BID MDD 80 units Qty: 30 5RF Rx Instructions: To be used based on insulin to carb ratio and pre meal scale (DME) Omnipod Dash Pods (Gen 4) Cartridge See Rx Instructions .Route Qty: 15 11RF Rx Instructions: As directed change pod every 2 days; TDD up to 100 units (DME) lancets 33 gauge misc See Rx Instructions .ROUTE .MEDSUPPLY Qty: 200 3RF Rx Instructions: Test blood sugar four times daily and PRN ferrous sulfate 325 mg (65 mg iron) tablet 325 mg PO Q OTHER DAY mecobalamin (vitamin B12) 1,000 mcg tablet,chewable 2,000 mcg PO DAILY (DME) FreeStyle Barbara 2 [place] Misc See Rx Instructions .Route Qty: 1 0RF Rx Instructions: As directed acetaminophen 500 mg Tablet 500 mg PO Q6H PRN (Reason: Pain) ibuprofen [Advil] 200 mg Tablet 200 mg PO Q6H PRN (Reason: Pain) Discharge Orders: Discharge Order (Routine); Ordered 07/14/23 Ordered By: Lesly Lopes Admission Data Admit Date/Time: 07/11/23 12:59 Attending Provider: Lesly Lopes Admit Provider: Ananda Schmidt Primary Care Provider: Jonnathan Pennington V. Other Providers: Victor Manuel Patel; Ananda Schmidt Coding Level of Care Code 69289 INP/OBS DISCH >30 MIN Diagnoses Radicular low back pain M54.10 Controlled type 1 diabetes mellitus, with long-term current use of insulin E10.9 Dyslipidemia E78.5
--- NOTE | 2023-07-14 13:26 | Hospitalist Progress Note ---
Date of Service July 14, 2023 Assessment & Plan (1) Radicular low back pain: Plan: Appreciate review by Dr Patel - unable to perform surgery this week as not around in case there will be a complication Gabapentin added Continue dexamethasone 4mg q6h, will defer to oncoming provider taper of this Acetaminophen 1g TID Add celebrex 200mg PO BID Oxycodone 5-10mg PRN for breakthrough pain Patient feels she could be discharged today after taking a shower, however she will change her mind Discharge home tomorrow on p.o. oxycodone 5 mg every 4 as needed Also asked to follow-up with Dr. Patel spine surgery in 1 week (2) Controlled type 1 diabetes mellitus, with long-term current use of insulin: Plan: Phamarcy consulted for glycemic control. Discussed with patient and reviewed regimen (3) Dyslipidemia: Plan: -Continue statin Plan VTE Prophylaxis - given limited mobility, obesity will start Lovenox 40mg SQ daily Diet - regular Disposition -discharge home tomorrow Admission and Anticipated Discharge Date Admission Date: July 11, 2023 Subjective Patient seen and examined today, states her pain is under good control especially with Ubly not too much with morphine. States she initially wanted to go home after taking a shower however she changed her mind. Wants to be discharged tomorrow instead Review of Systems Review of Systems: All systems reviewed are negative, apart from the ones contained in the history. Physical Exam Physical Exam: The patient is awake, alert and oriented 3, well developed and well nourished, normocephalic and atraumatic, lying in bed and in no acute distress. HEENT--PERRL, EOMI, mucous membranes and oropharynx mildly dry Neck--supple. No JVD. No bruits. Thyroid normal, trachea midline, no adenopathy. Heart--normal S1 and S2. No murmurs, rubs or gallops. Lungs--clear bilaterally, no respiratory distress, no accessory muscle use. Abdomen--normal bowel sounds and soft. Extremities--no cyanosis or clubbing. No edema. Dermatologic--normal skin turgor, normal color, no abnormal lymph nodes, no rash. Neurologic--cranial nerves II through XII grossly intact. Rheumatologic--normal range of motion. Psychiatric--normal affect. Results & Data Results & Data Vital Signs (Past 12 Hours) Vital Signs Temp Pulse Resp BP Pulse Ox O2 Del Method 07/14/23 09:21 98.1 F 104 H 18 165/78 H 99 Room Air PG Care Time/CCT Total # of Minutes Spent Total Time Spent with Patient: Total time spent is greater than 50% in coordination of care (as documented) at patient's floor/unit and/or counseling patient: Coding Level of Care Code 75205 SUB INP/OBS CARE 2/35MIN Diagnoses Radicular low back pain M54.10 Controlled type 1 diabetes mellitus, with long-term current use of insulin E10.9 Dyslipidemia E78.5 Time Spent (min) 35
--- NOTE | 2023-07-15 11:34 | Discharge Summary ---
Date of Service July 15, 2023 Admission HPI Per Admitting Provider Roberta is a 43 year old female with a PMH significant for Type 1 DM and chronic lumbar back pain who presented to the [facility] ED on 07/11/23 with complaints of acute exacerbation of her low back pain with radiation down her left LE. She remained stable in the ED. Labs were significant for a glucose of [address] of the lumbar spine was read as "1. No acute fractures within the lumbar spine. 2. There is a large partially calcified left paracentral disc extrusion at L5-S1 measuring 12 x 12 mm. This results in severe central canal narrowing 3. A 5 mm central/left paracentral focal disc protrusion at L4-5 resulting in mild to moderate central canal narrowing and moderate narrowing of the left lateral recess preop". The ED staff consulted and spoke to Dr. Patel who recommended medicine admission, MRI of the lumbar spine, and pain management. He will evaluate the patient tomorrow to determine need for surgery. Prior to admission the patient was given 15 mg IV toradol, 125 mg IV methylpr ednisolone, 2 doses of 4 mg IV morphine, 4 mg IV zofran, and 500 mL NSS. At the time of the exam the patient was lying in bed in no acute distress. She was unable to tolerate the MRI as she was in too much pain. She states that she went on retreat 2 weeks ago and slept on an uncomfortable mattress. She had mild lower back pain with some radiation down the left lower extremity on the lateral aspect down to the left knee. Her pain was manageable over the past week and a half but she was taking 1000 mg of tylenol q6h and 800 mg Ibuprofen q6h around the clock. Approximately 3 days ago her pain became significantly worse in the same distribution of the low lumbar back with radiation into the right buttocks and down the left lateral leg to the left knee. She denies recent trauma before or after, saddle anesthesia, loss of bowel or bladder function and LLE weakness. She has been using a walker to ambulate as she has been getting relief leaning forward when standing. She has intermittent numbness in the left foot in certain positions but currently, while lying flat she is without paresthesias. When asked, she uses basal/bolus insulin and has been taking 35 units lantus BID with a correction factor. Principal Diagnosis Lumbar disc herniation, back pain Discharge Exam The patient is awake, alert and oriented 3, well developed and well nourished, normocephalic and atraumatic, lying in bed and in no acute distress. HEENT--PERRL, EOMI, mucous membranes and oropharynx mildly dry Neck--supple. No JVD. No bruits. Thyroid normal, trachea midline, no adenopathy. Heart--normal S1 and S2. No murmurs, rubs or gallops. Lungs--clear bilaterally, no respiratory distress, no accessory muscle use. Abdomen--normal bowel sounds and soft. Extremities--no cyanosis or clubbing. No edema. Dermatologic--normal skin turgor, normal color, no abnormal lymph nodes, no rash. Neurologic--cranial nerves II through XII grossly intact. Rheumatologic--normal range of motion. Psychiatric--normal affect. Discharge Data Allergies Allergy/AdvReac Type Severity Reaction Status Date / Time No Known Drug Allergies Allergy Verified 07/11/23 11:36 Consultations 07/11/23 12:40 Consult Orthopedic Surgery Routine 07/11/23 12:46 ED Decision to Admit Stat Ordered Studies 07/11/23 10:07 CT lumbar spine wo con Stat 07/11/23 12:09 MRI Lumbar Spine [MR lumbar spine wo con] Stat Hospital Course (1) Radicular low back pain: Appreciate review by Dr Patel - unable to perform surgery this week as not around in case there will be a complication Gabapentin added Continue dexamethasone 4mg q6h, will defer to oncoming provider taper of this Acetaminophen 1g TID Add celebrex 200mg PO BID Oxycodone 5-10mg PRN for breakthrough pain Patient feels she could be discharged today after taking a shower, however she will change her mind Discharge home tomorrow on p.o. oxycodone 5 mg every 4 as needed, lidocaine patch Also asked to follow-up with Dr. Patel spine surgery in 1 week (2) Controlled type 1 diabetes mellitus, with long-term current use of insulin: Phamarcy consulted for glycemic control. Discussed with patient and reviewed regimen (3) Dyslipidemia: -Continue statin Plan VTE Prophylaxis - given limited mobility, obesity will start Lovenox 40mg SQ daily Diet - regular Disposition -discharge home Total Time Total Time Spent Total Time Spent (In Minutes): 35 Discharge Plan Discharge Items Patient Disposition: Home - Self-Care Reason For Visit: UNCONTROLLED BACK PAIN Discharge Diagnosis: Back pain, lumbar disc herniation Activity: Per Instructions section Non-emergency contact: Primary Care Provider Call non-emergency contact if: you have any medication questions Follow-up/Referrals: Jonnathan Pennington MD [Primary Care Provider] - 07/20/23 10:30 am (APPOINTMENT WITH [facility]) Diet: Regular Addtl Attending Provider Instructions: Please make appointment to follow-up with Dr. Patel spine surgery in 1 week. Pending Studies at Discharge: No Stand-Alone Forms: My [employer] ([employer]), Smoking Cessation Medications and DC Order Prescriptions: New oxycodone 5 mg Tablet 5 mg PO Q4H PRN (Reason: pain) Qty: 10 0RF lidocaine 5 % Adhesive Patch,Medicated 1 patch transdermal QAM 7 Days Qty: 7 0RF gabapentin 300 mg Capsule 300 mg PO TID 7 Days Qty: 21 0RF cyclobenzaprine 5 mg tablet 5 mg PO HS PRN (Reason: muscle spasm) Qty: 7 0RF dexamethasone 4 mg tablet 4 mg PO DAILY Qty: 10 0RF Continued (DME) pen needle, diabetic [BD Liliane 2nd Gen Pen Needle] 32 gauge x 5/32" n eedle See Rx Instructions miscellaneous .MEDSUPPLY Qty: 400 3RF Rx Instructions: Use a new pen needle up to 4x a day (DME) insulin syringe-needle U-100 [BD Insulin Syringe Ultra-Fine] 0.5 mL 31 gauge x 5/16" syringe See Dose Instructions .ROUTE .MEDSUPPLY Qty: 200 3RF Rx Instructions: To use with a new [id number] a day cholecalciferol (vitamin D3) 1,250 mcg (50,000 unit) capsule See Rx Instructions PO WEEKLY Qty: 13 1RF Rx Instructions: 16437 units PO weekly; (DME) OneTouch Ultra Test Strip See Rx Instructions .Route Qty: 200 5RF Rx Instructions: Test blood sugars 4 times a day and as needed (DME) FreeStyle Barbara 2 Sensor Kit See Rx Instructions .Route Qty: 2 5RF Rx Instructions: Change every 14 days (DME) Omnipod Dash Pods (Gen 4) Cartridge See Rx Instructions .Route Qty: 15 11RF Rx Instructions: As directed change pod every 2 days; TDD up to 100 units (DME) lancets 33 gauge misc See Rx Instructions .ROUTE .MEDSUPPLY Qty: 200 3RF Rx Instructions: Test blood sugar four times daily and PRN ferrous sulfate 325 mg (65 mg iron) tablet 325 mg PO Q OTHER DAY mecobalamin (vitamin B12) 1,000 mcg tablet,chewable 2,000 mcg PO DAILY (DME) FreeStyle Barbara 2 [place] Misc See Rx Instructions .Route Qty: 1 0RF Rx Instructions: As directed acetaminophen 500 mg Tablet 500 mg PO Q6H PRN (Reason: Pain) ibuprofen [Advil] 200 mg Tablet 200 mg PO Q6H PRN (Reason: Pain) No Action atorvastatin 10 mg tablet 0 mg PO QPM Rx Instructions: Unable to verify with patient at this date/time. insulin lispro 100 unit/mL solution 0 - 80 unit subcut BID MDD 80 units Rx Instructions: To be used based on insulin to carb ratio and pre meal scale Discharge Orders: Discharge Order (Routine); Ordered 07/15/23 Ordered By: Lesly Lopes Admission Data Admit Date/Time: 07/11/23 12:59 Attending Provider: Lesly Lopes Admit Provider: Ananda Schmidt Primary Care Provider: Jonnathan Pennington V. Other Providers: Victor Manuel Patel; Ananda Schmidt Coding Level of Care Code 73657 INP/OBS DISCH >30 MIN Diagnoses Radicular low back pain M54.10 Controlled type 1 diabetes mellitus, with long-term current use of insulin E10.9 Dyslipidemia E78.5 Time Spent (min) 35
== END 2023-07-15 14:26 | disposition home or self-care (01) | DRG 552 ==
LOC: ED 09:23 → SUATTDRO 12:59 → 3N 12:59

== ENCOUNTER 2023-07-26 14:28 | Inpatient (IN) ==
[2023-07-26 15:22] LABS: Basophils # (auto) 0.05 K/uL (0.00-0.20); Basophils % (auto) 0.3 %; Eosinophils # (auto) 0.06 K/uL (0.00-0.50); Eosinophils % (auto) 0.4 %; Hematocrit (blood only) 41.5 % (37.0-47.0); Hemoglobin 13.3 g/dl (12.0-16.0); Immature Granulocytes % (auto) 0.6 %; Lymphocytes # (auto) 4.58 K/uL (1.20-3.40); Lymphocytes % (auto) 28.6 %; Mean Corpuscular Volume 90.6 fL (80.0-100.0); Mean Platelet Volume 9.2 fL (9.4-12.4); Monocytes # (auto) 1.11 K/uL (0.11-0.59); Monocytes % (auto) 6.9 %; Neutrophils # (auto) 10.14 K/uL (1.40-6.50); Neutrophils % (auto) 63.2 %; Platelet Count 383 K/uL (130-400); RDW Coefficient of Variation 15.9 % (11.5-14.5); RDW Standard Deviation 51.5 fL (36.4-46.3); Red Blood Count 4.58 M/uL (4.20-5.40); White Blood Count 16.04 K/ul (4.8-10.8)
[2023-07-26 15:37] LABS: Alanine Aminotransferase 156 U/L (7-52); Albumin Globulin Ratio 1.5 (0.9-2); Albumin Level 4.2 gm/dl (3.4-5.0); Alkaline Phosphatase 66 U/L (34-104); Anion Gap 7 (3-11); Aspartate Aminotransferase 28 U/L (13-39); BUN Creatinine Ratio 18.7 (10-20); Bilirubin,Total 0.4 mg/dl (0.2-1.0); Blood Urea Nitrogen 17 mg/dl (6-23); Calcium 8.8 mg/dl (8.6-10.3); Carbon Dioxide 28 mmol/L (21-32); Chloride 102 mmol/L (98-107); Est GFR (African American) 90.8 ml/min; Est GFR (Non-African American) 78.4 ml/min; Globulin 2.8 gm/dl (2.5-4.0); Glucose 81 mg/dl (70-99(Fasting)); Potassium 3.8 mmol/L (3.5-5.1); Sodium 137 mmol/L (136-145)
--- NOTE | 2023-07-26 16:05 | Emergency Department Note ---
History of Present Illness General Chief complaint: Back Injury/Pain Stated complaint: BACK PAIN, RED BY DOC Time Seen by Provider: 07/26/23 15:56 History of Present Illness Maximum Pain Intensity: 10 NAME: AMIE HERNANDEZ AGE: 43 SEX: F : 1980 ARRIVES VIA: Walk-In INFORMANT: Patient ED PROVIDER(S): ADORE Schaefer, Luis Henderson, The patient is a 43-year-old female who arrives to the emergency department for evaluation of severe pain in her lumbar spine that has been persistent since June. She reports she was admitted on 07/11 and stated she was admitted for pain control, and was told she needed emergency surgery, however the surgeon according to the patient once unable to provide it at that time. She reports CT and MRI imaging showed a posterior disc extrusion at L5-S1 with severe canal and left neuroforaminal stenosis. She states she was to follow-up with Dr. Patel in office today, however she bent over and felt a severe pop in her lower back. She reports she has numbness and tingling going down her left leg, with significant weakness. She reports she contacted Dr. Patel's office to told her to report to the emergency department for admission. Home Medications Medication Instructions Recorded Confirmed Type ferrous sulfate 325 mg (65 mg 325 mg PO Q OTHER DAY 02/11/20 07/26/23 History iron) tablet flash glucose scanning reader #1 ea 01/06/22 07/26/23 Rx (FreeStyle Barbara 2 [place]) mecobalamin (vitamin B12) 1,000 2,000 mcg PO DAILY 01/19/22 07/26/23 History mcg chewable tablet pen needle, diabetic 32 gauge x #400 ea 10/04/22 07/26/23 Rx 5/32" (BD Liliane 2nd Gen Pen Needle) insulin syringe-needle U-100 0.5 #200 ea 01/25/23 07/17/23 Rx mL 31 gauge x 5/16" (BD Insulin Syringe Ultra-Fine) cholecalciferol (vitamin D3) 1,250 See Rx Instructions PO WEEKLY #13 03/09/23 07/26/23 Rx mcg (50,000 unit) capsule caps ibuprofen 200 mg tablet (Advil) 200 mg PO Q6H PRN Pain 07/11/23 07/26/23 History blood sugar diagnostic (OneTouch #200 ea 07/13/23 07/26/23 Rx Ultra Test strips) flash glucose sensor (FreeStyle #2 ea 07/13/23 07/26/23 Rx Barbara 2 Sensor kit) insulin pump cart,cont inf,BT #15 ea 07/13/23 07/26/23 Rx (Omnipod Dash Pods (Gen 4) subcutaneous cartridge) lancets 33 gauge #200 ea 07/13/23 07/26/23 Rx insulin aspart U-100 100 unit/mL See Rx Instructions subcut .COMPLEX 07/17/23 07/26/23 History subcutaneous solution oxycodone 5 mg tablet 5 mg PO Q4H PRN pain #40 tabs 07/17/23 07/26/23 Rx cyclobenzaprine 5 mg tablet 5 mg PO HS PRN muscle spasm #7 tabs 07/20/23 07/26/23 Rx nystatin 100,000 unit/mL oral 1 ml PO DAILY #60 mL 07/20/23 07/26/23 Rx suspension insulin glargine 100 unit/mL (3 65 unit (0.65 mL) subcut .COMPLEX 07/24/23 07/26/23 Rx mL) subcutaneous pen (Lantus #30 mL Solostar U-100 Insulin) acetaminophen 500 mg tablet 1,000 mg PO Q6H PRN Pain 07/26/23 07/26/23 History gabapentin 300 mg capsule 300 mg PO TID 07/26/23 07/26/23 History Allergies Allergy/AdvReac Type Severity Reaction Status Date / Time No Known Drug Allergies Allergy Verified 07/11/23 11:36 Past Med/Surg History Medical History Cough productive of purulent sputum Flank pain Acute bacterial sinusitis Chest pain Urinary symptom or sign Surgical History History of wisdom tooth extraction S/P foot surgery Family History Grandmother (Maternal) Colorectal cancer Father Parkinson disease Renal failure Grandfather (Maternal) Eosinophilic leukemia Family/Other Ovarian cancer Denies family history of Prostate cancer Crohn's disease Myocardial infarction Breast cancer Ulcerative colitis Social History Smoking Status: Never smoker Hx Alcohol Use: Yes Alcohol type: beer Hx Substance Use: No Preferred Language: Ukrainian Communication Ability: Effective Visual Impairment: No Limitations Hearing Ability: Normal Hearth Feeder Required: No Beliefs That Will Affect Care: None marital status: Single Current Living Situation: Parent current occupational status: employed Feels Safe at Home: Yes Safety Concerns: Feels Safe At This Time Dental Care, Regularly: Yes Physical Activity Frequency: 1-2 Times per Week Seatbelt Use: always Sunscreen Use: Yes Assistive Devices: Walker Physical Exam Vital Signs Vital Signs - 24 hr 07/26/23 14:49 Temperature 36.6 C Temperature Source Temporal Artery Scan Pulse Rate 101 H Respiratory Rate 20 Respiratory Effort / Characteristics Non-Labored Spontaneous Respiratory Depth Normal Blood Pressure 143/87 H Blood Pressure Mean 105 Blood Pressure Position Sitting Pulse Oximetry 96 Oxygen Delivery Method Room Air Sepsis Recent Fever Within 48 Hours No Sepsis New/Unexplained Change in Mental Status N/A Sepsis Action Taken by Nursing No Action Required VITALS: Vitals are noted on the nurse's note and reviewed by myself. Vital signs stable. GENERAL: 43-year-old, in mild distress, nondiaphoretic, well-developed well- nourished. SKIN: The skin was without rashes, erythema, edema, or bruising. HEAD: Normocephalic atraumatic. HEART: Regular rate and rhythm without murmurs gallops or rubs. LUNGS: Clear to auscultation bilaterally without wheezes, rales or rhonchi. No retractions or accessory muscle use. ABDOMEN: Positive bowel sounds x 4. Soft, nontender, without masses or organomegaly. Choi sign negative. No guarding or rebound tenderness. MUSCULOSKELETAL: Lumbar spine limited range of motion due to pain, left leg strength 4/5. NEURO: Patient was alert and oriented to person place and time. No focal neurological deficits. Course Administered Medications Gabapentin (Gabapentin 300 Mg Cap) 300 mg PO TID W[place] Stop: 08/25/23 21:18 Last Admin: 07/26/23 21:45 Dose: 300 mg Documented By: LBN Sodium Chloride (Nss) 1,000 mls @ 100 mls/hr IV .Q10H [place] Stop: 08/25/23 21:18 Last Admin: 07/26/23 21:46 Dose: 100 mls/hr Documented By: MCKAYLA Miscellaneous (Carbohydrates For Hypoglycemia ) 15 - 30 gm PO UD PRN PRN Reason: Hypoglycemia Treatment Stop: 08/25/23 21:59 Last Admin: 07/26/23 21:25 Dose: 15 gm Documented By: MCKAYLA Oxycodone HCl (Oxycodone Hcl Ir 5 Mg Tab (Immediate Release)) 5 - 10 mg PO Q4H PRN PRN Reason: mod to severe pain Stop: 08/09/23 21:18 Last Admin: 07/26/23 21:45 Dose: 10 mg Documented By: MCKAYLA Discontinued Medications Miscellaneous (Patient's Height &/Or Weight Needed) 1 each N/A ONE STA Stop: 07/26/23 21:26 Last Admin: 07/26/23 21:46 Dose: 1 each Documented By: MCKAYAL Morphine Sulfate (Morphine Sulfate 4 Mg/Ml 1 Ml Carp\\Vial) 4 mg IV NOW STA Stop: 07/26/23 20:05 Last Admin: 07/26/23 20:08 Dose: 4 mg Documented By: DANI Oxycodone HCl (Oxycodone Hcl Ir 5 Mg Tab (Immediate Release)) 5 mg PO NOW STA Stop: 07/26/23 18:23 Last Admin: 07/26/23 18:31 Dose: 5 mg Documented By: DANIE Medical Decision Making Differential Diagnosis Fracture, subluxation, dislocation, contusion, ligamentous injury, neurovascular, as well as other pathologies. Medical Records Attestation: I reviewed the patient's medical records. Home Medications Current Medication List: was personally reviewed by me Laboratory Data Attestation: I reviewed the patient's lab results. Leukocytosis, 16.04, no electrolyte abnormalities. 07/26/23 14:55 07/26/23 14:55 Lab Results 07/26/23 Range/Units 14:55 WBC 16.04 H (4.8-10.8) K/ul RBC 4.58 (4.20-5.40) M/uL Hgb 13.3 (12.0-16.0) g/dl Hct 41.5 (37.0-47.0) % MCV 90.6 (80.0-100.0) fL MCH 29.0 (25.0-34.0) pg MCHC 32.0 (32.0-36.0) g/dL RDW Std Deviation 51.5 H (36.4-46.3) fL RDW Coeff of Ar 15.9 H (11.5-14.5) % Plt Count 383 (130-400) K/uL MPV 9.2 L (9.4-12.4) fL Immature Gran % (Auto) 0.6 % Neut % (Auto) 63.2 % Lymph % (Auto) 28.6 % Giles % (Auto) 6.9 % Eos % (Auto) 0.4 % Baso % (Auto) 0.3 % Neut # (Auto) 10.14 H (1.40-6.50) K/uL Lymph # (Auto) 4.58 H (1.20-3.40) K/uL Giles # (Auto) 1.11 H (0.11-0.59) K/uL Eos # (Auto) 0.06 (0.00-0.50) K/uL Baso # (Auto) 0.05 (0.00-0.20) K/uL Immature Gran # (Auto) 0.10 (0.01-0.20) K/uL Sodium 137 (136-145) mmol/L Potassium 3.8 (3.5-5.1) mmol/L Chloride 102 (98-107) mmol/L Carbon Dioxide 28 (21-32) mmol/L Anion Gap 7 (3-11) BUN 17 (6-23) mg/dl Creatinine 0.91 (0.6-1.2) mg/dl Est Cr Clr Drug Dosing Not Reportable Est GFR ( Amer) 90.8 ml/min Est GFR (Non-Af Amer) 78.4 ml/min BUN/Creatinine Ratio 18.7 (10-20) Glucose 81 (70-99(Fasting)) mg/dl Calcium 8.8 (8.6-10.3) mg/dl Total Bilirubin 0.4 (0.2-1.0) mg/dl AST 28 (13-39) U/L ALT 156 H (7-52) U/L Alkaline Phosphatase 66 (34-104) U/L Total Protein 7.0 (6.0-8.3) gm/dl Albumin 4.2 (3.4-5.0) gm/dl Globulin 2.8 (2.5-4.0) gm/dl Albumin/Globulin Ratio 1.5 (0.9-2) Imaging Data Attestation: I personally reviewed and interpreted this imaging study as follows: My Impression: X-ray imaging per my initial interpretation shows no acute cardiopulmonary process. Will await formal radiology report. Radiologist's Impression: Chest X-Ray 07/26/23 16:33 SINGLE VIEW CHEST CLINICAL HISTORY: Preoperative examination FINDINGS: An AP, portable, upright chest radiograph is compared to study dated 07/11/2023. The cardiomediastinal silhouette is unremarkable. The lungs and pleural spaces are clear. No pneumothorax is seen. The bony thorax is grossly intact. IMPRESSION: No active disease in the chest. ACT 112: Negative or not required by law. Electronically signed by: Quang Finch M.D. 07/26/2023 5:18 PM ECG Data Attestation: I personally reviewed and interpreted this ECG as follows: Indication: + back/shoulder pain Rate (beats per minute): 91 Rhythm: + normal sinus ECG [place]: + Normal ECG ST segments: + Normal ST segments Comparison ECG Date: from (07/11/23) Change: no significant change MDM Narrative The patient is a 43-year-old female who arrives to the emergency department for the above-stated complaint. Upon examination the patient has significant pain in her lumbar spine, with sitting and standing, and any type of range of motion. The patient reports she was to be following up with Dr. Patel today, however she was unable to visit him in his office due to pain. She reports he informed her to come to the emergency department for admission. I contacted Dr. Patel, who reports he will admit the patient. He states he would like preoperative chest x-ray, as well as an ECG, basic labs. Per my initial interpretation chest x-ray shows no acute cardiopulmonary abnormality, ECG shows normal sinus rhythm at a rate of 91 which shows no change from her previous and 07/14. Labs are reassuring, CBC, CMP are negative for leukocytosis, as well as electrolyte abnormality. I spoke with case management who facilitated the admission process. This time Dr. Patel will take over care of the patient. Impression & Plan Back pain Discharge Plan Visit Data Chief Complaint: Back Injury/Pain Stated Complaint: BACK PAIN, RED BY DOC ED Provider: Luis Henderson ED Midlevel Provider: Emani Brown Discharge Problem: Back pain Patient Disposition: Admitted As Inpatient Discharge Instructions Interventions: ED Discharge Assessment Last Done: 07/26/23 20:55
--- NOTE | 2023-07-26 17:19 | XRay Report ---
SINGLE VIEW CHEST CLINICAL HISTORY: Preoperative examination FINDINGS: An AP, portable, upright chest radiograph is compared to study dated 07/11/2023. The cardiom ediastinal silhouette is unremarkable. The lungs and pleural spaces are clear. No pneumothorax is see n. The bony thorax is grossly intact. IMPRESSION: No active disease in the chest. ACT 112: Negative or not required by law. Electronically signed by: Quang Finch M.D. 07/26/2023 5:18 PM
[2023-07-26] MEDS: oxyCODONE HCL IR 5 MG TAB (IMMEDIATE RELEASE) PO STA (18:31)
--- NOTE | 2023-07-26 19:00 | History & Physical Report ---
Date of Service July 26, 2023 Assessment & Plan (1) Lumbar disc herniation with radiculopathy: Plan: Assessment lumbar disc herniation L4-L5 L5-S1. Plan in length yesterday with the patient and her mother. She does have a massive disc herniation L5-S1 with severe canal encroachment and displacement traversing roots. She has now dense numbness to the leg with return of severe radiculopathy after the cessation of her oral steroids. She feels the numbness is much worse today. And again her pain is incapacitating. Subsequent recommending a lumbar decompression and fusion L5-S1 possible L4-L5. Risk benefits pros cons and alternatives were all in detail. Risk include but not limited to anesthesia blindness stroke paralysis nerve damage blood loss requiring transfusion infection requiring reoperation passively marked improvement of her lumbar radiculopathy and and time improvement of her neurologic function. This time we will make her n.p.o. for midnight and plan for surgery tomorrow to avoid permanent neurologic damage. History of Present Illness Chief Complaint: Severe left leg pain with numbness and inability to ambulate. Primary Care Provider: Jonnathan Pennington MD This is a 43-year-old female known to me presented a little over a week ago to the emergency room with severe left leg pain. She was admitted for pain and diagnosed with a disc herniation L4 L5-S1. L5-S1 was the predominant issue with a fragment that had migrated caudally causing significant neural compression. She underwent a course of IV steroids and physical therapy was able to be discharged home and was scheduled to follow-up with us in the office. Unfortunately today as she appeared to come to the office she did bend forward and reproduce severe pain and now dense numbness into the left foot. She had also completed her oral steroids yesterday. The right lower extremity is asymptomatic at this time. She is able to urinate without difficulty. She is having marked difficulty with any movement as it reproduces severe radiculopathy. Allergies Allergy/AdvReac Type Severity Reaction Status Date / Time No Known Drug Allergies Allergy Verified 07/11/23 11:36 Home Medications Medication Instructions Recorded Confirmed Type ferrous sulfate 325 mg (65 mg 325 mg PO Q OTHER DAY 02/11/20 07/26/23 History iron) tablet flash glucose scanning reader #1 ea 01/06/22 07/26/23 Rx (FreeStyle Barbara 2 [place]) mecobalamin (vitamin B12) 1,000 2,000 mcg PO DAILY 01/19/22 07/26/23 History mcg chewable tablet pen needle, diabetic 32 gauge x #400 ea 10/04/22 07/26/23 Rx 5/32" (BD Liliane 2nd Gen Pen Needle) insulin syringe-needle U-100 0.5 #200 ea 01/25/23 07/17/23 Rx mL 31 gauge x 5/16" (BD Insulin Syringe Ultra-Fine) cholecalciferol (vitamin D3) 1,250 See Rx Instructions PO WEEKLY #13 03/09/23 07/26/23 Rx mcg (50,000 unit) capsule caps ibuprofen 200 mg tablet (Advil) 200 mg PO Q6H PRN Pain 07/11/23 07/26/23 History blood sugar diagnostic (OneTouch #200 ea 07/13/23 07/26/23 Rx Ultra Test strips) flash glucose sensor (FreeStyle #2 ea 07/13/23 07/26/23 Rx Barbara 2 Sensor kit) insulin pump cart,cont inf,BT #15 ea 07/13/23 07/26/23 Rx (Omnipod Dash Pods (Gen 4) subcutaneous cartridge) lancets 33 gauge #200 ea 07/13/23 07/26/23 Rx insulin aspart U-100 100 unit/mL See Rx Instructions subcut .COMPLEX 07/17/23 07/26/23 History subcutaneous solution oxycodone 5 mg tablet 5 mg PO Q4H PRN pain #40 tabs 07/17/23 07/26/23 Rx cyclobenzaprine 5 mg tablet 5 mg PO HS PRN muscle spasm #7 tabs 07/20/23 07/26/23 Rx nystatin 100,000 unit/mL oral 1 ml PO DAILY #60 mL 07/20/23 07/26/23 Rx suspension insulin glargine 100 unit/mL (3 65 unit (0.65 mL) subcut .COMPLEX 07/24/23 07/26/23 Rx mL) subcutaneous pen (Lantus #30 mL Solostar U-100 Insulin) acetaminophen 500 mg tablet 1,000 mg PO Q6H PRN Pain 07/26/23 07/26/23 History gabapentin 300 mg capsule 300 mg PO TID 07/26/23 07/26/23 History Past Med/Surg History Medical History Cough productive of purulent sputum Flank pain Acute bacterial sinusitis Chest pain Urinary symptom or sign Surgical History History of wisdom tooth extraction S/P foot surgery Family History Grandmother (Maternal) Colorectal cancer Father Parkinson disease Renal failure Grandfather (Maternal) Eosinophilic leukemia Family/Other Ovarian cancer Denies family history of Prostate cancer Crohn's disease Myocardial infarction Breast cancer Ulcerative colitis Social History Smoking Status: Never smoker Hx Alcohol Use: No Hx Substance Use: No Preferred Language: Malaysian Communication Ability: Effective Visual Impairment: No Limitations Hearing Ability: Normal Manager Of Procurement Required: No Beliefs That Will Affect Care: None marital status: Single Current Living Situation: Family current occupational status: employed Feels Safe at Home: Yes Dental Care, Regularly: Yes Physical Activity Frequency: 1-2 Times per Week Seatbelt Use: always Sunscreen Use: Yes Assistive Devices: None Physical Exam Physical Exam: On exam patient is in bed. She is in obvious distress. She has severe tension signs with straight leg raising on the left none on the right. She has reasonable strength plantarflexion dorsiflexion quadriceps bilaterally. Marked decrease sensation to the left lower extremity compared to right. Deep and reflexes absent. Results & Data Results & Data Vital Signs (Past 12 Hours) Vital Signs Temp Pulse Resp BP Pulse Ox O2 Del Method 07/26/23 14:49 36.6 C 101 H 20 143/87 H 96 Room Air
[2023-07-26] MEDS: MoRPHine SULFATE 4 MG/ML 1 ML CARP\\VIAL IV STA (20:08)
[2023-07-26] MEDS ORDERED: PROMETHAZINE HCL 12.5 MG in SODIUM CHLORIDE 0.9% 50 ML IV PRN (21:19)
[2023-07-26] MEDS ORDERED: ONDANSETRON INJ 2 MG/ML 2 ML VIAL IV PRN (21:19)
[2023-07-26] MEDS ORDERED: NON-FORMULARY MEDICATION (Pen Needle, Diabetic [Bd Nano 2nd Gen Pen Needle] 32 gauge x 5/3 MS SCH (21:19)
[2023-07-26] MEDS ORDERED: LORazepam 0.5 MG TAB PO PRN (21:19)
[2023-07-26] MEDS ORDERED: PHARMACY GLYCEMIC MGMT CONSULT PRN (21:19)
[2023-07-26] MEDS ORDERED: LANCETS SCH (21:19)
[2023-07-26] MEDS ORDERED: METOCLOPRAMIDE HCL INJ 5 MG/ML 2 ML VIAL IV PRN (21:19)
[2023-07-26] MEDS ORDERED: ACETAMINOPHEN 1,000 MG/100 ML VIAL IV PRN (21:19)
[2023-07-26] MEDS ORDERED: NON-FORMULARY MEDICATION (Insulin Glargine [Lantus Solostar U-100 Insulin] 100 unit/mL (3 SQ SCH (21:19)
[2023-07-26] MEDS ORDERED: NALOXONE HCL 0.4 MG/1 ML VIAL/CARP IV PRN (21:19)
[2023-07-26] MEDS ORDERED: ONDANSETRON 4 MG OD TAB PO PRN (21:19)
[2023-07-26] MEDS ORDERED: LORazepam 0.5 MG in SYRINGE 0.25 ML IV PRN (21:19)
[2023-07-26] MEDS: CARBOHYDRATES FOR HYPOGLYCEMIA PO PRN (21:25)
[2023-07-26] MEDS: GABAPENTIN 300 MG CAP PO SCH (21:45)
[2023-07-26] MEDS: oxyCODONE HCL IR 5 MG TAB (IMMEDIATE RELEASE) PO PRN (21:45)
[2023-07-26] MEDS: SODIUM CHLORIDE 0.9% 1,000 ML IV SCH (21:46)
[2023-07-26] MEDS: Patient's HEIGHT &/or WEIGHT Needed STA (21:46)
[2023-07-26] MEDS ORDERED: GLUCOSE 10 TAB/TUBE PO PRN (22:00)
[2023-07-26] MEDS ORDERED: GLUCAGON FOR INJ 1 MG VIAL IM PRN (22:00)
[2023-07-26] MEDS ORDERED: GLUCOSE 40% GEL 15 GM TUBE PO PRN (22:00)
--- NOTE | 2023-07-26 22:11 | Hospitalist Consultation ---
Date of Consultation July 26, 2023 Assessment & Plan (1) Lumbar disc herniation with radiculopathy: - Plan for surgical management tomorrow per Dr. Patel - Continue with pain management per primary - continue gabapentin (2) Controlled type 1 diabetes mellitus, with long-term current use of insulin: - Has used insulin pump in the past, but not using currently due to cost - pharmacy is consulted for glycemic management (3) Dyslipidemia: - on atorvastatin - mild transaminitis as per below; repeat qAM (4) Transaminitis: - ALT= 156, with normal AST/Bilirubin - Repeat CMP qAM - If remains elevated would consider further imaging; liver US and would consider holding Tylenol (5) Leukocytosis: - leukocytosis in the setting of recent steroid use - no acute signs of infection Supervising Physician Co-Signing Physician Notes Attending addendum: I have supervised the medical residents activities, and agree with the H&P unless as otherwise noted. Assessment and Plan: Lumbar disc herniation with radiculopathy- Admitted to orthopedic spine surgery Dr. Patel for the OR in the a.m. Pain management per primary service Diabetes mellitus with long-term current use of insulin- Pharmacy consult for glycemic management has already been placed Transaminitis- ALT 156, new compared to previous laboratories Repeat in a.m. and if persistent order liver ultrasound and other workup Holding atorvastatin for now History of Present Illness Attending Physician: Victor Manuel Patel, DO History of Present Illness 43 year old female with a past medical history of DM1, HLD presenting with acute worsening of low back pain. Was admitted from 07/11-07/15 for pain management in the setting of lumbar disc herniation L4-L5 L5-S1. Pain acutely worsened today which prompted her to come to ED. Plan for surgery with Dr. Patel for disc herniation L5-S1 with severe canal encroachment and displacement traversing roots. Consulted for medical management. Allergies Allergy/AdvReac Type Severity Reaction Status Date / Time No Known Drug Allergies Allergy Verified 07/11/23 11:36 Home Medications Medication Instructions Recorded Confirmed Type ferrous sulfate 325 mg (65 mg 325 mg PO Q OTHER DAY 02/11/20 07/26/23 History iron) tablet flash glucose scanning reader #1 ea 01/06/22 07/26/23 Rx (FreeStyle Barbara 2 [place]) mecobalamin (vitamin B12) 1,000 2,000 mcg PO DAILY 01/19/22 07/26/23 History mcg chewable tablet pen needle, diabetic 32 gauge x #400 ea 10/04/22 07/26/23 Rx 5/32" (BD Liliane 2nd Gen Pen Needle) insulin syringe-needle U-100 0.5 #200 ea 01/25/23 07/17/23 Rx mL 31 gauge x 5/16" (BD Insulin Syringe Ultra-Fine) cholecalciferol (vitamin D3) 1,250 See Rx Instructions PO WEEKLY #13 03/09/23 07/26/23 Rx mcg (50,000 unit) capsule caps ibuprofen 200 mg tablet (Advil) 200 mg PO Q6H PRN Pain 07/11/23 07/26/23 History blood sugar diagnostic (OneTouch #200 ea 07/13/23 07/26/23 Rx Ultra Test strips) flash glucose sensor (FreeStyle #2 ea 07/13/23 07/26/23 Rx Barbara 2 Sensor kit) insulin pump cart,cont inf,BT #15 ea 07/13/23 07/26/23 Rx (Omnipod Dash Pods (Gen 4) subcutaneous cartridge) lancets 33 gauge #200 ea 07/13/23 07/26/23 Rx insulin aspart U-100 100 unit/mL See Rx Instructions subcut .COMPLEX 07/17/23 07/26/23 History subcutaneous solution oxycodone 5 mg tablet 5 mg PO Q4H PRN pain #40 tabs 07/17/23 07/26/23 Rx cyclobenzaprine 5 mg tablet 5 mg PO HS PRN muscle spasm #7 tabs 07/20/23 07/26/23 Rx nystatin 100,000 unit/mL oral 1 ml PO DAILY #60 mL 07/20/23 07/26/23 Rx suspension insulin glargine 100 unit/mL (3 65 unit (0.65 mL) subcut .COMPLEX 07/24/23 07/26/23 Rx mL) subcutaneous pen (Lantus #30 mL Solostar U-100 Insulin) acetaminophen 500 mg tablet 1,000 mg PO Q6H PRN Pain 07/26/23 07/26/23 History atorvastatin 10 mg tablet mg 07/26/23 History gabapentin 300 mg capsule 300 mg PO TID 07/26/23 07/26/23 History Patient History Medical History (Updated 07/27/23 @ 09:58 by Nicanor Childs MD) Encounter for pre-operative examination Transaminitis Lumbar disc herniation with radiculopathy Controlled type 1 diabetes mellitus, with long-term current use of insulin Insulin pump in place Cough productive of purulent sputum Flank pain Acute bacterial sinusitis Chest pain Urinary symptom or sign Surgical History History of wisdom tooth extraction S/P foot surgery Family History Grandmother (Maternal) Colorectal cancer Father Parkinson disease Renal failure Grandfather (Maternal) Eosinophilic leukemia Family/Other Ovarian cancer Denies family history of Prostate cancer Crohn's disease Myocardial infarction Breast cancer Ulcerative colitis Social History Smoking Status: Never smoker Hx Alcohol Use: Yes Alcohol type: beer Hx Substance Use: No Preferred Language: Scottish Communication Ability: Effective Visual Impairment: No Limitations Hearing Ability: Normal Character Impersonator Required: No Beliefs That Will Affect Care: None marital status: Single Current Living Situation: Parent current occupational status: employed Feels Safe at Home: Yes Safety Concerns: Feels Safe At This Time Dental Care, Regularly: Yes Physical Activity Frequency: 1-2 Times per Week Seatbelt Use: always Sunscreen Use: Yes Assistive Devices: Bedside Commode, Hospital Bed and Walker Review of Systems Review of Systems: As per above Physical Exam Physical Exam: Constitutional: well-appearing, no acute distress HEENT: NCAT, no conjunctival injection CV: regular rhythm, no murmur appreciated, extremities well-perfused, no LE edema Resp: CTABL, no wheezes/rales/rhonchi appreciated, no increased work of breathing GI: soft, nondistended, nontender, BS normoactive MSK: no gross deformities appreciated Skin: warm, dry, no rash appreciated Neuro: alert, oriented, no focal neurologic deficit appreciated Results & Data Results & Data Vital Signs (Past 12 Hours) Vital Signs Temp Pulse Pulse Resp BP BP Pulse Ox 07/26/23 20:55 07/26/23 20:30 92 H 18 148/81 H 97 07/26/23 14:49 36.6 C 101 H 20 143/87 H 96 O2 Del Method 07/26/23 20:55 Room Air 07/26/23 20:30 07/26/23 14:49 Room Air Resident Activity Tracking Resident Involvement: Resident Care Provided Care Provided: Adult Hospital Medicine
[2023-07-26] MEDS: INSULIN ASPART PER UNIT CHARGE SQ SCH (23:31)
[2023-07-27] MEDS: ACETAMINOPHEN 500 MG TAB PO PRN (00:40)
[2023-07-27] MEDS: DEXTROSE 50% 50 ML SYRINGE IV PRN (02:45)
[2023-07-27] MEDS: HYDROmorphone INJ 1 MG/ML SYRINGE IV PRN (04:11)
[2023-07-27] MEDS: HYDROmorphone INJ 0.5 MG/0.5 ML SYR IV PRN ×2 (04:59→20:34)
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
[2023-07-27 08:45] LABS: Hematocrit (blood only) 37.7 % (37.0-47.0); Hemoglobin 12.2 g/dl (12.0-16.0); Mean Corpuscular Hemoglobin 29.6 pg (25.0-34.0); Mean Corpuscular Hgb Conc 32.4 g/dL (32.0-36.0); Mean Corpuscular Volume 91.5 fL (80.0-100.0); Mean Platelet Volume 9.3 fL (9.4-12.4); Platelet Count 349 K/uL (130-400); RDW Standard Deviation 52.6 fL (36.4-46.3); Red Blood Count 4.12 M/uL (4.20-5.40)
[2023-07-27 08:58] LABS: Albumin Globulin Ratio 1.4 (0.9-2); Albumin Level 3.9 gm/dl (3.4-5.0); BUN Creatinine Ratio 18.2 (10-20); Bilirubin,Total 0.5 mg/dl (0.2-1.0); Calcium 8.5 mg/dl (8.6-10.3); Creatinine Clr Calc Pharmacy 131.3 ml/min; Est GFR (African American) 111.2 ml/min; Est GFR (Non-African American) 95.9 ml/min; Globulin 2.7 gm/dl (2.5-4.0); Magnesium 1.9 mg/dl (1.7-2.4); Potassium 4.3 mmol/L (3.5-5.1); Total Protein 6.6 gm/dl (6.0-8.3)
[2023-07-27] MEDS: FERROUS SULFATE 325 MG TAB PO SCH (09:32)
[2023-07-27] MEDS: CYANOCOBALAMIN (B-12) 500 MCG TABLET PO SCH (09:32)
--- NOTE | 2023-07-27 09:59 | Anesthesiology Consultation ---
Date of Service July 27, 2023 Assessment & Plan (1) Encounter for pre-operative examination: Chart Review Chart Review: Acceptable Risk for Surgery and Patient NOT seen in Pre Admission Testing Consults Requested none History Surgery Operation Date: 07/27/23 07:10 Proposed Procedures p L5-S1 Decompression Fusion, Possible L4-L5 - Victor Manuel Patel DO Height/Weight Height: 5 ft 9 in Weight: 117 kg Allergies Allergy/AdvReac Type Severity Reaction Status Date / Time No Known Drug Allergies Allergy Verified 07/11/23 11:36 Medications Home Medications Medication Instructions Recorded Confirmed Last Taken ferrous sulfate 325 mg (65 mg 325 mg PO Q OTHER DAY 02/11/20 07/26/23 07/10/23 iron) tablet flash glucose scanning reader #1 ea 01/06/22 07/26/23 Unknown (FreeStyle Barbara 2 [place]) mecobalamin (vitamin B12) 1,000 2,000 mcg PO DAILY 01/19/22 07/26/23 07/10/23 mcg chewable tablet pen needle, diabetic 32 gauge x #400 ea 10/04/22 07/26/23 Unknown 5/32" (BD Liliane 2nd Gen Pen Needle) insulin syringe-needle U-100 0.5 #200 ea 01/25/23 07/17/23 Unknown mL 31 gauge x 5/16" (BD Insulin Syringe Ultra-Fine) cholecalciferol (vitamin D3) 1,250 See Rx Instructions PO WEEKLY #13 03/09/23 07/26/23 Unknown mcg (50,000 unit) capsule caps ibuprofen 200 mg tablet (Advil) 200 mg PO Q6H PRN Pain 07/11/23 07/26/23 07/11/23 blood sugar diagnostic (OneTouch #200 ea 07/13/23 07/26/23 Unknown Ultra Test strips) flash glucose sensor (FreeStyle #2 ea 07/13/23 07/26/23 Unknown Barbara 2 Sensor kit) insulin pump cart,cont inf,BT #15 ea 07/13/23 07/26/23 Unknown (Omnipod Dash Pods (Gen 4) subcutaneous cartridge) lancets 33 gauge #200 ea 07/13/23 07/26/23 Unknown insulin aspart U-100 100 unit/mL See Rx Instructions subcut .COMPLEX 07/17/23 07/26/23 Unknown subcutaneous solution oxycodone 5 mg tablet 5 mg PO Q4H PRN pain #40 tabs 07/17/23 07/26/23 Unknown cyclobenzaprine 5 mg tablet 5 mg PO HS PRN muscle spasm #7 tabs 07/20/23 07/26/23 Unknown nystatin 100,000 unit/mL oral 1 ml PO DAILY #60 mL 07/20/23 07/26/23 Unknown suspension insulin glargine 100 unit/mL (3 65 unit (0.65 mL) subcut .COMPLEX 07/24/23 07/26/23 Unknown mL) subcutaneous pen (Lantus #30 mL Solostar U-100 Insulin) acetaminophen 500 mg tablet 1,000 mg PO Q6H PRN Pain 07/26/23 07/26/23 Unknown atorvastatin 10 mg tablet mg 07/26/23 Unknown gabapentin 300 mg capsule 300 mg PO TID 07/26/23 07/26/23 Unknown Active Medications Generic Name Dose Route Start Last Admin Trade Name Freq PRN Reason Stop Dose Admin Acetaminophen 1,000 mg 07/26/23 21:19 07/27/23 00:40 Acetaminophen 500 Mg Tab PO 08/25/23 21:18 1,000 mg Q8H PRN Administration MILD Pain Scale 1,2,3 & Pre PT Cyanocobalamin 2,000 mcg 07/27/23 09:00 07/27/23 09:32 Cyanocobalamin (B-12) 500 Mcg Tablet PO 08/26/23 08:59 Not Given DAILY WINSTON Dextrose 25 - 50 ml 07/26/23 22:00 07/27/23 02:45 Dextrose 50% 50 Ml Syringe IV 08/25/23 21:59 25 ml UD PRN Administration Hypoglycemia Protocol Protocol Ferrous Sulfate 325 mg 07/27/23 09:00 07/27/23 09:32 Ferrous Sulfate 325 Mg Tab PO 08/26/23 08:59 Not Given Q2D WINSTON Gabapentin 300 mg 07/26/23 21:19 07/27/23 09:32 Gabapentin 300 Mg Cap PO 08/25/23 21:18 Not Given TID WINSTON Hydromorphone HCl 0.5 mg 07/26/23 21:19 07/27/23 04:59 Hydromorphone Inj 0.5 Mg/0.5 Ml Syr IV 08/09/23 21:18 0.5 mg Q3H PRN Administration MOD pain (scale 4-6) & Pre PT Hydromorphone HCl 1 mg 07/26/23 21:19 07/27/23 04:11 Hydromorphone Inj 1 Mg/Ml Syringe IV 08/09/23 21:18 1 mg Q3H PRN Administration severe pain (scale 7-10) Sodium Chloride 1,000 mls @ 100 mls/hr 07/26/23 21:19 07/27/23 07:35 Nss IV 08/25/23 21:18 100 mls/hr .Q10H WINSTON Administration Insulin Aspart 0 units 07/27/23 00:00 07/27/23 09:10 Insulin Aspart Per Unit Charge SQ 08/26/23 00:00 Not Given Q4 WINSTON Miscellaneous 15 - 30 gm 07/26/23 22:00 07/26/23 21:25 Carbohydrates For Hypoglycemia PO 08/25/23 21:59 15 gm UD PRN Administration Hypoglycemia Treatment Oxycodone HCl 5 - 10 mg 07/26/23 21:19 07/27/23 07:41 Oxycodone Hcl Ir 5 Mg Tab (Immediate Release) PO 08/09/23 21:18 10 mg Q4H PRN Administration mod to severe pain Past Medical History Medical History (Updated 07/27/23 @ 09:58 by Nicanor Childs MD) Encounter for pre-operative examination Transaminitis Lumbar disc herniation with radiculopathy Controlled type 1 diabetes mellitus, with long-term current use of insulin Insulin pump in place Cough productive of purulent sputum Flank pain Acute bacterial sinusitis Chest pain Urinary symptom or sign Past Family History Family History Grandmother (Maternal) Colorectal cancer Father Parkinson disease Renal failure Grandfather (Maternal) Eosinophilic leukemia Family/Other Ovarian cancer Denies family history of Prostate cancer Crohn's disease Myocardial infarction Breast cancer Ulcerative colitis Past Surgical History Surgical History History of wisdom tooth extraction S/P foot surgery Social History Smoking Status: Never smoker Hx Alcohol Use: Yes Alcohol type: beer alcohol intake frequency: holidays/special occasions only Hx Substance Use: No Physical Exam Vital Signs Last Vital Signs Temp 36.8 C 07/27/23 07:37 Pulse 90 07/27/23 07:37 Resp 18 07/27/23 07:37 BP 136/78 07/27/23 07:37 Pulse Ox 96 07/27/23 07:37 O2 Del Method Room Air 07/27/23 07:37 Testing Laboratory Results 07/27/23 08:05 07/27/23 08:05 07/27/23 07/27/23 07/27/23 08:33 06:04 04:08 POC Glucose 114 H 82 109 H 07/27/23 07/27/23 07/27/23 03:02 02:42 02:27 POC Glucose 133 H 69 L* 63 L* 07/26/23 23:27 POC Glucose 157 H Electrocardiogram Date: 07/26/23 Findings: + NSR @ (91) Normal sinus rhythm Normal ECG When compared with ECG of 11-JUL-2023 15:26, No significant change was found Other Testing Stress echo 03/30/22: No ischemic change EF 60-65% No sig valvular abnormalities
[2023-07-27] MEDS: LANTUS PER UNIT CHARGE SC ONE (10:08)
--- NOTE | 2023-07-27 10:12 | Pharmacy Report ---
Pharmacy Glycemic Short Note 2 - Date of Service July 27, 2023 - Glycemic Short BSG Results (Last 24 hours): 07/26/23 07/26/23 07/26/23 14:55 21:23 21:42 Glucose 81 POC Glucose 63 L* 81 07/26/23 07/27/23 07/27/23 23:27 02:27 02:42 Glucose POC Glucose 157 H 63 L* 69 L* 07/27/23 07/27/23 07/27/23 03:02 04:08 06:04 Glucose POC Glucose 133 H 109 H 82 07/27/23 07/27/23 08:05 08:33 Glucose 92 POC Glucose 114 H OUTPATIENT ANTIDIABETIC REGIMEN: * Lantus 35 units HS and 40 units qAM; Novolog- has been using carb ratio of 3.5 * Recent steroid use/reports being off steroids ~1 day, no steroids currently ordered ASSESSMENT: * Patient is a type 1 diabetic admitted for spinal surgery. She is currently NPO, surgery time not yet determined. * Patient last took her lantus home lantus yesterday ~0900 AM 40 units, PM dose was held. * Patient with hypoglycemic event overnight, patient did take 20 units of her home aspart with food last night, she reports this was less than what she would typically take. BSGs per her freestyle still running in low 90s, 114 mg/dL on fingerstick this morning * Discussed with patient re: outpatient insulin use, patient was concerned with not receiving her basal last night but BSGs low/normal at current time. Concern with completely holding basal insulin >24 hours but also will be NPO and patient concerned about further hypoglycemia in surgery. Recommended up to 20 units this morning, this would be ~50% of her dose she received yesterday. Patient agreeable with 10 units this morning if surgery to be this afternoon. (this is half weight based stress of 1). Patient would like to go back to her schedule 35 units this PM. * Discussed carb ratio- she reports carb ratio of 5 was too loose before starting steroids, will keep carb ratio of 4 for now. Likely to be ordered a diet after surgery * Recent steroid use/reports being off steroids ~1 day, no steroids currently ordered PLAN FOR INPATIENT GLYCEMIC CONTROL: * Hold outpatient oral diabetes medications * Basal insulin * Lantus 10 units SQ x1 * Lantus 35 units for PM * Bolus insulin * NovoLog per scale ACHS or Q6hrs while NPO * Goal Range: Low 110 mg/dL - High 160 mg/dL * Correction Factor: 20 mg/dL/unit * Nutritional / Prandial insulin per carb ratio of 1 unit per 4 grams CHO consumed
[2023-07-27] MEDS ORDERED: ATROPINE SULFATE 0.1 MG/ML 10ML SYR IV PRN (10:50)
[2023-07-27] MEDS ORDERED: HYDROmorphone INJ 2 MG/ML SYR/VIAL IV PRN (10:50)
[2023-07-27] MEDS ORDERED: ONDANSETRON INJ 2 MG/ML 2 ML VIAL IV PRN ×2 (10:50→15:31)
[2023-07-27] MEDS ORDERED: ePHEDrine sulfate 50 MG/ML AMP IV PRN (10:50)
--- NOTE | 2023-07-27 10:59 | Electrocardiogram Report ---
Test Reason : Blood Pressure : / mmHG Vent. Rate : 091 BPM Atrial Rate : 091 BPM P-R Int : 130 ms QRS Dur : 066 ms QT Int : 352 ms P-R-T Axes : 058 057 030 degrees QTc Int : 432 ms Normal sinus rhythm Normal ECG When compared with ECG of 11-JUL-2023 15:26, No significant change was found Confirmed by Doug Marcano ([id number]) on 07/27/2023 10:59:33 AM Referred By: Victor Manuel Patel Confirmed By:Doug Marcano
--- NOTE | 2023-07-27 11:13 | History & Physical Bridge Note ---
Date of Service July 27, 2023 History & Physical Bridge Note I have examined the patient, reviewed the History & Physical and in the interval since the performance of the History & Physical I have noted the following changes of clinical significance: Patient presents with marked decline in status over the past 24 hours. She now has dense numbness into the left foot with incapacitating pain. I am recommending emergent decompression and fusion L4-L5 L5-S1 to prevent permanent neurologic damage.
[2023-07-27] MEDS ORDERED: fentaNYL citrate PF 100 MCG/2 ML VIAL ONE ×2 (11:20→11:58)
[2023-07-27] MEDS ORDERED: MIDAZOLAM HCL 1 MG/ML 2ML VIAL ONE (11:20)
[2023-07-27] MEDS ORDERED: DEXAMETHASONE SOD INJ 4 MG/ML VIAL ONE (11:21)
[2023-07-27] MEDS ORDERED: ROCURONIUM BROMIDE 10 MG/ML 5 ML VIAL IV ONE ×3 (11:21→12:07)
[2023-07-27] MEDS ORDERED: PROPOFOL IV EMULSION 10 MG/ML 20 ML VIAL IV ONE (11:21)
[2023-07-27] MEDS ORDERED: ONDANSETRON INJ 2 MG/ML 2 ML VIAL ONE (11:21)
[2023-07-27] MEDS: ceFAZolin 3000MG 3,000 MG/72.5 ML BAG IV SCH (11:33)
[2023-07-27] MEDS ORDERED: diphenhydrAMINE 50 MG/ML VIAL ONE (12:12)
[2023-07-27] MEDS: BUPIVACAINE/EPINEPHRINE 0.5% MPF 1:200,000 30 ML VIAL ONE (12:27)
[2023-07-27] MEDS ORDERED: GLYCOPYRROLATE 0.2 MG/ML VIAL ONE (13:14)
[2023-07-27] MEDS ORDERED: NEOSTIGMINE METHYLSULFATE 1 MG/ML 10ML VIAL ONE (13:14)
[2023-07-27] MEDS: ceFAZolin 330 MG/ML 1 GM VIAL ONE (13:53)
[2023-07-27] MEDS: FLOSEAL HEMOSTATIC MATRIX 10ML TOP ONE (13:54)
[2023-07-27] MEDS ORDERED: HYDROmorphone INJ 2 MG/ML SYR/VIAL ONE (13:58)
--- NOTE | 2023-07-27 14:06 | Operative Report ---
Post Operative Report Pre & Post Diagnosis Operation Date: 07/27/23 07:10 Pre-Op Diagnosis: Lumbar disc herniation with radiculopathy Post-Op Diagnosis: Lumbar disc herniation with radiculopathy I identified the patient and participated in the time-out.: Yes Procedure Operation Date: 07/27/23 07:10 Actual Procedures #1 lumbar decompression bilaterally facetectomies and foraminotomies L4-L5 L5- S1. #2 posterior spinal fusion L4-L5 L5-S1. #3 placement posterior instrumentation L4-S1. #4 interbody fusion L4-L5 L5-S1. #5 placement spiral 14 x 26 mm at L4-5 and 13 x 26 mm at L5-S1. #6 placement locally harvested morselized autograft in the posterior gutters. #7 placement infuse collagen sponge combined with Koros bone graft in the posterior lateral gutters and Koros bone graft interbody space. Surgeon Victor Manuel Patel, DO [facility] Program Resident Parviz Valdivia Estimated Blood Loss 300 Findings See Below Patient is 5 foot 9 weight 117 kg with a BMI in excess of 38. The patient's body habitus did contribute to significant difficulty with positioning exposure and the procedure itself at least 50% increased operative time. Specimens none Indications This is a 43-year-old female presents with marked decline in neurologic status secondary to massive disc herniation with free fragment that is migrated caud ally. Subsequent she is here for emergent surgical intervention. Description of Procedure Patient was met with identified informed 17. Patient was then taken to the operative suite underwent ablation placed in a prone position on the [place] table top [place] frame. All bony promises well-padded eyes inspected to ensure no external precipice spinal. This point lumbar spine was prepped and draped in sterile fashion. Sharp dissection with the assistance of Bovie cautery form down to and exposing the lamina transverse processes of L4-5 and sacral ala bilaterally. From caudal to cephalad fashion complete laminectomy L5 and L4 was performed cutting bilaterally facetectomies and foraminotomies addressing all stenosis as well as identifying massive disc herniation L5-S1 is migrated caudally and was dorsal to the nerve roots on the left. Also included disc herniation at L4-5 on the left. After complete decompression pedicle screws were placed in L4-L5 and S1 levels bilaterally with assistance of fluoroscopy in the process sonya placed. By way of a transforaminal approach on the left complete discectomy of L5-S1 was performed endplates guarded to subcortical and bone and a 13 x 26 mm spiral cage with Koros bone graft tapped in position. Then proceeded for L4-L5 and again by way of transforaminal approach complete discectomy performed endplates guarded to subcortical bleeding bone and a 14 x 26 mm Spira cage filled with Koros bone graft apposition. The rods were then compressed locked in the final position bilaterally. The transverse processes of L4-L5 and sacral ala burred to subcortical bleeding bone. Infuse collagen sponge combined with Koros and locally harvested most graft was placed in the posterior lateral gutters. 15 round DRISS inserted. The incision was then closed with 1 Vicryl to fascia 2-0 Vicryl subcutaneously and 4 Monocryl for final skin closure. Steri-Strips sterile dressing placed. Patient waken taken to PACU in stable condition. Please note spinal cord monitoring was utilized at the procedure no changes noted. Lastly Parviz Valdivia was present at the entire surgery and while the patient positioning complex portion of the surgery and final skin closure. I attest to the content of the Intraoperative Record and any orders documented therein. Any exceptions are noted below.
--- NOTE | 2023-07-27 14:08 | Fluoroscopy Report ---
FL lumbar spine 2-3V CLINICAL HISTORY: L4 - S1 DECOMPRESSION AND FUSION TECHNIQUE: 2 views were obtained with the C-arm in the OR with the above procedure. Total fluoroscopy time was 23 seconds. Radiation dose was 23.23 mGy. Comparison: Comparison is made to MRI lumbar spine 07/11/2023 FINDINGS/IMPRESSION: Intraoperative images were obtained of L4-S1 decompression and fusion. Please correlate with intraoperative fluoroscopy and operative report. ACT 112: Negative or not required by law. Electronically signed by: Jesse Marinelli M.D. 07/27/2023 2:07 PM
[2023-07-27] MEDS: fentaNYL citrate PF 100 MCG/2 ML VIAL IV PRN (14:43)
--- NOTE | 2023-07-27 14:47 | Communication Note ---
Date of Service: July 27, 2023 Addendum -- patient w/ thrush/papi appearance to mouth from steroids. Had been on nystatin oral and forgot to mention on admission. Restarting nystatin oral QID and monitor.
--- NOTE | 2023-07-27 14:54 | Anesthesiology Progress Note ---
Date of Service July 27, 2023 Anesthesia Post Procedure Vital Signs Vital Signs: Temp Pulse Pulse Pulse Resp BP Pulse Ox 07/27/23 14:50 75 12 130/78 98 07/27/23 14:40 78 12 122/76 100 07/27/23 14:30 36.2 C L 85 12 135/89 100 07/27/23 10:30 36.7 C 101 H 20 131/79 99 07/27/23 07:37 36.8 C 90 18 136/78 96 07/26/23 21:48 36.3 C L 103 H 18 139/66 97 07/26/23 20:55 07/26/23 20:30 92 H 18 148/81 H 97 O2 Del Method O2 Flow Rate 07/27/23 14:50 Room Air 0 07/27/23 14:40 Room Air 0 07/27/23 14:30 Oxymask 8 07/27/23 10:30 Room Air 07/27/23 07:37 Room Air 07/26/23 21:48 Room Air 07/26/23 20:55 Room Air 07/26/23 20:30 Pain Intensity Sacrum: Pain Intensity: 9 Transfer of Care Handoff Completed per policy Notes Mental Status: alert / awake / arousable and participated in evaluation Patient Amnestic to Procedure: Yes Nausea / Vomiting: adequately controlled Pain: adequately controlled Airway Patency, RR, SpO2: stable & adequate BP & HR: stable & adequate Hydration State: stable & adequate Anesthetic Complications: no major complications apparent and Pt Satisfied with anesthetic care
[2023-07-27] MEDS ORDERED: ONDANSETRON 4 MG OD TAB PO PRN (15:31)
[2023-07-27] MEDS ORDERED: SOD PHOSPHATE/SOD BIPHOSPHATE ENEMA 132 ML BTL PR PRN (15:31)
[2023-07-27] MEDS ORDERED: ACETAMINOPHEN 500 MG TAB PO PRN (15:31)
[2023-07-27] MEDS ORDERED: bisacodyL 10 MG SUPP PR PRN (15:31)
[2023-07-27] MEDS ORDERED: PROMETHAZINE HCL 12.5 MG in SODIUM CHLORIDE 0.9% 50 ML IV PRN (15:31)
[2023-07-27] MEDS ORDERED: MAGNESIUM HYDROXIDE SUSP 30 ML UDC PO PRN (15:31)
[2023-07-27] MEDS ORDERED: diphenhydrAMINE Capsule 25 MG CAP PO PRN (15:31)
[2023-07-27] MEDS ORDERED: DO NOT ADMINISTER FLU VACCINE PRN (15:31)
[2023-07-27] MEDS ORDERED: ACETAMINOPHEN 1,000 MG/100 ML VIAL IV PRN (15:31)
[2023-07-27] MEDS ORDERED: DO NOT ADMINISTER PNEUMOCOCCAL VACCINE PRN (15:31)
[2023-07-27] MEDS ORDERED: NALOXONE HCL 0.4 MG/1 ML VIAL/CARP IV PRN (15:31)
[2023-07-27] MEDS ORDERED: FAMOTIDINE 20 MG TAB PO PRN (15:31)
[2023-07-27] MEDS ORDERED: ALUMINUM/MAGNESIUM SUSP 30 ML UDC PO PRN (15:31)
[2023-07-27] MEDS ORDERED: METOCLOPRAMIDE HCL INJ 5 MG/ML 2 ML VIAL IV PRN (15:31)
[2023-07-27] MEDS: SODIUM CHLORIDE 0.9% 1,000 ML IV SCH (15:53)
[2023-07-27] MEDS: oxyCODONE HCL IR 5 MG TAB (IMMEDIATE RELEASE) PO PRN (16:43)
[2023-07-27] MEDS ORDERED: Nursing to Pharmacy Communication SCH (17:30)
[2023-07-27] MEDS: NYSTATIN SUSP 500,000 U/5 ML UDC PO SCH (17:35)
[2023-07-27] MEDS: INSULIN ASPART PER UNIT CHARGE SQ SCH (17:42)
[2023-07-27] MEDS: traMADol HCL 50 MG TABLET PO PRN (19:07)
--- NOTE | 2023-07-27 19:38 | Billing Data ---
Date of Service July 27, 2023 Coding Level of Care Code 89697 IN/OBS CONSULT LVL 3,45M
[2023-07-27] MEDS: LORazepam 0.5 MG in SYRINGE 0.25 ML IV PRN (20:55)
[2023-07-27] MEDS: ceFAZolin 2000MG 2,000 MG/15 ML SYR IV SCH (20:56)
[2023-07-27] MEDS: DOCUSATE SODIUM/SENNA 50/8.6MG TAB PO SCH (20:59)
[2023-07-27] MEDS ORDERED: ATORVASTATIN 10 MG TAB PO SCH (21:00)
[2023-07-27] MEDS: LANTUS PER UNIT CHARGE SC SCH (21:59)
[2023-07-27] MEDS: hydrOXYzine HCl 25 MG TAB PO PRN (23:11)
[2023-07-28] MEDS: INSULIN ASPART PER UNIT CHARGE SQ SCH (01:51)
[2023-07-28] MEDS: POLYETHYLENE (MIRALAX) 17 GM PACK PO SCH (05:14)
[2023-07-28 06:58] LABS: Basophils # (auto) 0.03 K/uL (0.00-0.20); Basophils % (auto) 0.2 %; Eosinophils # (auto) 0.14 K/uL (0.00-0.50); Hematocrit (blood only) 32.8 % (37.0-47.0); Hemoglobin 10.8 g/dl (12.0-16.0); Immature Granulocytes # (auto) 0.06 K/uL (0.01-0.20); Immature Granulocytes % (auto) 0.4 %; Lymphocytes # (auto) 1.69 K/uL (1.20-3.40); Lymphocytes % (auto) 11.9 %; Mean Corpuscular Hemoglobin 29.5 pg (25.0-34.0); Mean Corpuscular Hgb Conc 32.9 g/dL (32.0-36.0); Mean Corpuscular Volume 89.6 fL (80.0-100.0); Mean Platelet Volume 9.3 fL (9.4-12.4); Monocytes # (auto) 0.86 K/uL (0.11-0.59); Monocytes % (auto) 6.1 %; Neutrophils # (auto) 11.37 K/uL (1.40-6.50); Neutrophils % (auto) 80.4 %; Platelet Count 307 K/uL (130-400); RDW Coefficient of Variation 15.9 % (11.5-14.5); RDW Standard Deviation 51.3 fL (36.4-46.3); Red Blood Count 3.66 M/uL (4.20-5.40); White Blood Count 14.15 K/ul (4.8-10.8)
[2023-07-28 07:18] LABS: Albumin Globulin Ratio 1.4 (0.9-2); Albumin Level 3.4 gm/dl (3.4-5.0); BUN Creatinine Ratio 12.3 (10-20); Bilirubin,Total 0.7 mg/dl (0.2-1.0); Creatinine Clr Calc Pharmacy 138.5 ml/min; Est GFR (African American) 118.6 ml/min; Est GFR (Non-African American) 102.3 ml/min; Globulin 2.4 gm/dl (2.5-4.0); Magnesium 1.8 mg/dl (1.7-2.4); Total Protein 5.8 gm/dl (6.0-8.3)
[2023-07-28 07:37] LABS: Ferritin 45.3 ng/ml (8-388)
[2023-07-28] MEDS: HYDROmorphone INJ 1 MG/ML SYRINGE IV PRN (08:08)
[2023-07-28] MEDS: dexAMETHasone 6 MG in SYRINGE 0 ML IV SCH (08:11)
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
[2023-07-28] MEDS: LANTUS PER UNIT CHARGE SC SCH (08:44)
[2023-07-28] MEDS: BACLOFEN 10 MG TAB PO ONE (09:52)
--- NOTE | 2023-07-28 10:22 | Orthopedic Progress Note ---
Date of Service July 28, 2023 Assessment & Plan (1) Radicular low back pain: Plan At this time initiate physical therapy monitor DRISS output. Admission and Anticipated Discharge Date Admission Date: July 26, 2023 Subjective Back pain controlled leg pain markedly improved. She is struggling with some right leg symptoms. She has not been out of bed yet. Physical Exam Physical Exam: On exam she is in bed. She is good strength testing. Sensory is intact. Results & Data Vital Signs (Past 12 Hours) Vital Signs Temp Pulse Resp BP Pulse Ox O2 Del Method 07/28/23 02:00 36.8 C 100 H 17 130/74 97 Room Air Queries Orthopedic Spine Acute Posthemorrhagic Anemia: Yes Obesity: Yes
[2023-07-28] MEDS: KETOROLAC 30 MG/ML VIAL IV ONE (10:53)
--- NOTE | 2023-07-28 14:00 | Pharmacy Report ---
Pharmacy Glycemic Short Note 2 - Date of Service July 28, 2023 - Glycemic Short BSG Results (Last 24 hours): 07/27/23 07/27/23 07/27/23 14:33 16:32 21:09 Glucose POC Glucose 185 H 205 H 123 H 07/28/23 07/28/23 07/28/23 01:22 01:45 06:17 Glucose 123 H POC Glucose 68 L* 84 07/28/23 07/28/23 08:03 11:34 Glucose POC Glucose 144 H 212 H OUTPATIENT ANTIDIABETIC REGIMEN: * Lantus 40 units SC AM + 35 units SC PM * Novolog - has been using carb ratio of 3.5 * Last A1c: 7.8% (03/08/23) * Recent steroid use/reports being off steroids ~1 day, no steroids currently ordered ASSESSMENT: 07/27: * Roberta received 56 units of insulin yesterday, 45 basal + 11 bolus. BSGs were: [id number] mg/dL. * Fasting BSG 144 mg/dL this AM. Will increase AM basal slightly today but given fasting on steroids, do not want to be too aggressive. * Remains on Dexamethasone 6 mg IV daily and tolerating T2DM diet. No change to Novolog. 07/26: * Patient is a type 1 diabetic admitted for spinal surgery. She is currently NPO, surgery time not yet determined. * Patient last took her lantus home lantus yesterday ~0900 AM 40 units, PM dose was held. * Patient with hypoglycemic event overnight, patient did take 20 units of her home aspart with food last night, she reports this was less than what she would typically take. BSGs per her freestyle still running in low 90s, 114 mg/dL on fingerstick this morning * Discussed with patient re: outpatient insulin use, patient was concerned with not receiving her basal last night but BSGs low/normal at current time. Concern with completely holding basal insulin >24 hours but also will be NPO and patient concerned about further hypoglycemia in surgery. Recommended up to 20 units this morning, this would be ~50% of her dose she received yesterday. Patient agreeable with 10 units this morning if surgery to be this afternoon. (this is half weight based stress of 1). Patient would like to go back to her schedule 35 units this PM. * Discussed carb ratio- she reports carb ratio of 5 was too loose before starting steroids, will keep carb ratio of 4 for now. Likely to be ordered a diet after surgery * Recent steroid use/reports being off steroids ~1 day, no steroids currently ordered PLAN FOR INPATIENT GLYCEMIC CONTROL: * Basal insulin * Lantus 20 units SC AM * Lantus 35 units SC PM * Bolus insulin * NovoLog per scale ACHS or Q6hrs while NPO * Goal Range: Low 110 mg/dL - High 160 mg/dL * Correction Factor: 20 mg/dL/unit * Nutritional / Prandial insulin per carb ratio of 1 unit per 4 grams CHO consumed
[2023-07-29] MEDS: LORazepam 0.5 MG TAB PO PRN (03:04)
[2023-07-29 06:34] LABS: Hematocrit (blood only) 31.3 % (37.0-47.0); Hemoglobin 10.4 g/dl (12.0-16.0); Mean Corpuscular Hemoglobin 29.6 pg (25.0-34.0); Mean Corpuscular Hgb Conc 33.2 g/dL (32.0-36.0); Mean Corpuscular Volume 89.2 fL (80.0-100.0); Mean Platelet Volume 9.4 fL (9.4-12.4); Platelet Count 319 K/uL (130-400); RDW Coefficient of Variation 15.6 % (11.5-14.5); RDW Standard Deviation 49.9 fL (36.4-46.3); Red Blood Count 3.51 M/uL (4.20-5.40); White Blood Count 14.35 K/ul (4.8-10.8)
[2023-07-29 07:00] LABS: Albumin Globulin Ratio 1.3 (0.9-2); Albumin Level 3.5 gm/dl (3.4-5.0); BUN Creatinine Ratio 18.8 (10-20); Bilirubin,Total 0.6 mg/dl (0.2-1.0); Calcium 8.3 mg/dl (8.6-10.3); Est GFR (African American) 128.5 ml/min; Est GFR (Non-African American) 110.8 ml/min; Globulin 2.8 gm/dl (2.5-4.0); Magnesium 1.8 mg/dl (1.7-2.4); Potassium 3.8 mmol/L (3.5-5.1); Total Protein 6.3 gm/dl (6.0-8.3)
[2023-07-29 07:15] LABS: Thyroid Stimulating Hormone 0.425 uIu/ml (0.300-4.500)
[2023-07-29] MEDS: LANTUS PER UNIT CHARGE SC SCH (08:10)
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
[2023-07-29] MEDS ORDERED: LANTUS PER UNIT CHARGE SC SCH (09:00)
--- NOTE | 2023-07-29 11:12 | Orthopedic Progress Note ---
Date of Service July 29, 2023 Assessment & Plan (1) Radicular low back pain: Plan: At this time we will continue physical therapy monitor DRISS output hopefully discharge in the next few days. Admission and Anticipated Discharge Date Admission Date: July 26, 2023 Subjective Patient's pain is improved. Leg symptoms improved. She tolerated physical therapy this morning. Physical Exam Physical Exam: On exam she is in the chair at the bedside. Is distracted testing. Results & Data Vital Signs (Past 12 Hours) Vital Signs Temp Pulse Resp BP Pulse Ox O2 Del Method 07/29/23 08:49 36.9 C 101 H 18 118/70 97 Room Air 07/28/23 23:15 36.4 C 84 16 111/70 95 Room Air Queries Orthopedic Spine Acute Posthemorrhagic Anemia: Yes Obesity: Yes
[2023-07-29] MEDS: KETOROLAC 30 MG/ML VIAL IV PRN (11:29)
--- NOTE | 2023-07-29 14:28 | Pharmacy Report ---
Pharmacy Glycemic Short Note 2 - Date of Service July 29, 2023 - Glycemic Short BSG Results (Last 24 hours): 07/28/23 07/28/23 07/29/23 16:28 20:47 06:06 Glucose 132 H POC Glucose 246 H 215 H 07/29/23 07/29/23 07:44 11:45 Glucose POC Glucose 167 H 102 H OUTPATIENT ANTIDIABETIC REGIMEN: * Lantus 40 units SC AM + 35 units SC PM * Novolog - has been using carb ratio of 3.5 * Last A1c: 7.8% (03/08/23) * Recent steroid use/reports being off steroids ~1 day, no steroids currently ordered ASSESSMENT: 07/28: * Patient received 119 units of insulin yesterday- 55 units of basal + 64 units of bolus. BSGs were [phone] mg/dL * Ongoing Dexamethasone 6 mg IV daily with T2DM diet. * Carb ratio tightened to 3.5 last PM after prandial BSGs remained above goal, lunch today 102 mg/dL * Fasting this morning 167 mg/dL, will titrate basal up toward previous home use today. 07/27: * Roberta received 56 units of insulin yesterday, 45 basal + 11 bolus. BSGs were: [phone] mg/dL. * Fasting BSG 144 mg/dL this AM. Will increase AM basal slightly today but given fasting on steroids, do not want to be too aggressive. * Remains on Dexamethasone 6 mg IV daily and tolerating T2DM diet. No change to Novolog. 07/26: * Patient is a type 1 diabetic admitted for spinal surgery. She is currently NPO, surgery time not yet determined. * Patient last took her lantus home lantus yesterday ~0900 AM 40 units, PM dose was held. * Patient with hypoglycemic event overnight, patient did take 20 units of her home aspart with food last night, she reports this was less than what she would typically take. BSGs per her freestyle still running in low 90s, 114 mg/dL on fingerstick this morning * Discussed with patient re: outpatient insulin use, patient was concerned with not receiving her basal last night but BSGs low/normal at current time. Concern with completely holding basal insulin >24 hours but also will be NPO and patient concerned about further hypoglycemia in surgery. Recommended up to 20 units this morning, this would be ~50% of her dose she received yesterday. Patient agreeable with 10 units this morning if surgery to be this afternoon. (this is half weight based stress of 1). Patient would like to go back to her schedule 35 units this PM. * Discussed carb ratio- she reports carb ratio of 5 was too loose before starting steroids, will keep carb ratio of 4 for now. Likely to be ordered a diet after surgery * Recent steroid use/reports being off steroids ~1 day, no steroids currently ordered PLAN FOR INPATIENT GLYCEMIC CONTROL: * Basal insulin * Lantus 30 units SC AM * Lantus 35 units SC PM * Bolus insulin * NovoLog per scale ACHS or Q6hrs while NPO * Goal Range: Low 110 mg/dL - High 160 mg/dL * Correction Factor: 20 mg/dL/unit * Nutritional / Prandial insulin per carb ratio of 1 unit per 3.5 grams CHO consumed
[2023-07-29] MEDS: BACLOFEN 10 MG TAB PO ONE (18:21)
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
[2023-07-30] MEDS: LANTUS PER UNIT CHARGE SC SCH (08:13)
[2023-07-30 08:20] LABS: Albumin Globulin Ratio 1.3 (0.9-2); Albumin Level 3.5 gm/dl (3.4-5.0); Bilirubin,Total 0.6 mg/dl (0.2-1.0); Calcium 8.4 mg/dl (8.6-10.3); Creatinine Clr Calc Pharmacy 165.8 ml/min; Est GFR (African American) 130.5 ml/min; Est GFR (Non-African American) 112.6 ml/min; Globulin 2.8 gm/dl (2.5-4.0); Magnesium 1.8 mg/dl (1.7-2.4); Potassium 3.9 mmol/L (3.5-5.1); Total Protein 6.3 gm/dl (6.0-8.3)
--- NOTE | 2023-07-30 12:19 | Pharmacy Report ---
Pharmacy Glycemic Short Note 2 - Date of Service July 30, 2023 - Glycemic Short BSG Results (Last 24 hours): 07/29/23 07/29/23 07/30/23 16:44 20:37 04:06 Glucose POC Glucose 251 H 140 H 201 H 07/30/23 07/30/23 07/30/23 07:12 07:38 11:38 Glucose 183 H POC Glucose 187 H 101 H OUTPATIENT ANTIDIABETIC REGIMEN: * Lantus 40 units SC AM + 35 units SC PM * Novolog - has been using carb ratio of 3.5 * Last A1c: 7.8% (03/08/23) * Recent steroid use/reports being off steroids ~1 day, no steroids currently ordered ASSESSMENT: 07/29: * Roberta received 126 units of insulin yesterday (65 were basal) * Fasting BSG slightly elevated this AM, will increase basal insulin by approximately 15% * Today is the last day of IV dexamethasone 6mg, potential discharge tomorrow * Carbohydrate ratio tightened slightly due to BSG swings. 07/28: * Patient received 119 units of insulin yesterday- 55 units of basal + 64 units of bolus. BSGs were [phone] mg/dL * Ongoing Dexamethasone 6 mg IV daily with T2DM diet. * Carb ratio tightened to 3.5 last PM after prandial BSGs remained above goal, lunch today 102 mg/dL * Fasting this morning 167 mg/dL, will titrate basal up toward previous home use today. 07/27: * Roberta received 56 units of insulin yesterday, 45 basal + 11 bolus. BSGs were: [phone] mg/dL. * Fasting BSG 144 mg/dL this AM. Will increase AM basal slightly today but given fasting on steroids, do not want to be too aggressive. * Remains on Dexamethasone 6 mg IV daily and tolerating T2DM diet. No change to Novolog. 07/26: * Patient is a type 1 diabetic admitted for spinal surgery. She is currently NPO, surgery time not yet determined. * Patient last took her lantus home lantus yesterday ~0900 AM 40 units, PM dose was held. * Patient with hypoglycemic event overnight, patient did take 20 units of her home aspart with food last night, she reports this was less than what she would typically take. BSGs per her freestyle still running in low 90s, 114 mg/dL on fingerstick this morning * Discussed with patient re: outpatient insulin use, patient was concerned with not receiving her basal last night but BSGs low/normal at current time. Concern with completely holding basal insulin >24 hours but also will be NPO and patient concerned about further hypoglycemia in surgery. Recommended up to 20 units this morning, this would be ~50% of her dose she received yesterday. Patient agreeable with 10 units this morning if surgery to be this afternoon. (this is half weight based stress of 1). Patient would like to go back to her schedule 35 units this PM. * Discussed carb ratio- she reports carb ratio of 5 was too loose before starting steroids, will keep carb ratio of 4 for now. Likely to be ordered a diet after surgery * Recent steroid use/reports being off steroids ~1 day, no steroids currently ordered PLAN FOR INPATIENT GLYCEMIC CONTROL: * Basal insulin * Lantus 40 units SC AM * Lantus 35 units SC PM * Bolus insulin * NovoLog per scale ACHS or Q6hrs while NPO * Goal Range: Low 110 mg/dL - High 160 mg/dL * Correction Factor: 20 mg/dL/unit * Nutritional / Prandial insulin per carb ratio of 1 unit per 3 grams CHO consumed
--- NOTE | 2023-07-30 12:27 | Orthopedic Progress Note ---
Date of Service July 30, 2023 Assessment & Plan (1) Radicular low back pain: Plan: At this time continue physical therapy anticipate discharge home tomorrow. Admission and Anticipated Discharge Date Admission Date: July 26, 2023 Subjective Back pain is controlled but does struggle with back spasms. She still continues to have dense numbness in the bilateral feet. Physical Exam Physical Exam: Patient is seen with bed. He is comfortable. Is good strength testing. Sensory still diminished to lower extremities. Results & Data Vital Signs (Past 12 Hours) Vital Signs Temp Pulse Resp BP Pulse Ox O2 Del Method 07/30/23 07:52 36.6 C 97 H 18 134/72 96 Room Air Queries Orthopedic Spine Acute Posthemorrhagic Anemia: Yes Obesity: Yes
[2023-07-30] MEDS: BACLOFEN 10 MG TAB PO PRN (22:46)
[2023-07-31] MEDS: LANTUS PER UNIT CHARGE SC SCH (08:13)
[2023-07-31] MEDS ORDERED: LANTUS PER UNIT CHARGE SC SCH (21:00)
--- NOTE | 2023-08-03 07:37 | Discharge Summary ---
Date of Service August 03, 2023 Admission HPI Per Admitting Provider This is a 43-year-old female known to me presented a little over a week ago to the emergency room with severe left leg pain. She was admitted for pain and diagnosed with a disc herniation L4 L5-S1. L5-S1 was the predominant issue with a fragment that had migrated caudally causing significant neural compression. She underwent a course of IV steroids and physical therapy was able to be discharged home and was scheduled to follow-up with us in the office. Unfortunately today as she appeared to come to the office she did bend forward and reproduce severe pain and now dense numbness into the left foot. She had a lso completed her oral steroids yesterday. The right lower extremity is asymptomatic at this time. She is able to urinate without difficulty. She is having marked difficulty with any movement as it reproduces severe radiculopathy. Discharge Data Consultations 07/26/23 17:29 ED Decision to Admit Stat 07/26/23 21:19 Consult Internal Medicine Routine Procedures Performed Operation Date: 07/27/23 07:10 Actual Procedures p L4-L5 and L5-S1 Decompression and Fusion with Spinal Cord Monitoring(Not Applicable) - Victor Manuel Patel, DO [facility] Course (1) Radicular low back pain: Patient is a pleasant 43-year-old female who presented with extreme pain and weakness in her legs. She was noted to have a large L5-S1 disc extrusion with a smaller disc herniation at L4-5. She was admitted to the hospital on 07/26/2019 for. On 07/27/2023 she had undergone lumbar decompression at L4-5 and L5-S1 in conjunction with an instrumented fusion. This was performed by Dr. Patel under general anesthesia. The patient tolerated the procedure well she left the operating with a DRISS drain and Diaz in place and transferred to PACU in stable condition. She was then transferred to the orthopedic floor where she had adequate pain control. She was placed on GI DVT prophylaxis.. She was seen by physical therapy postoperative day #1 for ambulation and gait training. On 07/30 she met discharge criteria and was discharged home. Her discharge instructions were to avoid any full bending at the waist. She is to change her dressing once daily till there is no drainage once there is no drainage she may shower. For follow-up. She is to contact our office for follow-up visit approximately 2 weeks out from her surgery or sooner if she notes any increased pain fevers chills or paresthesias
== END 2023-07-31 15:36 | disposition home or self-care (01) | DRG 454 ==
LOC: ED 14:28 → 3W 19:05
DX: E10.9 Type 1 diabetes mellitus without complications; B37.0 Candidal stomatitis; D62 Acute posthemorrhagic anemia; V89.2XXS Person injured in unspecified motor-vehicle accident, traffic, sequela; Z79.4 Long term (current) use of insulin; M51.16 Intervertebral disc disorders with radiculopathy, lumbar region; R74.01 Elevation of levels of liver transaminase levels; T38.0X5A Adverse effect of glucocorticoids and synthetic analogues, initial encounter; E78.5 Hyperlipidemia, unspecified; Z79.899 Other long term (current) drug therapy; M51.17 Intervertebral disc disorders with radiculopathy, lumbosacral region; D72.829 Elevated white blood cell count, unspecified